=== PATIENT | male | born 1960 | race Caucasian/White ===

== ENCOUNTER 2017-02-08 12:20 | Inpatient (IN) | payer BC ==
[~2017-02-08] VITALS: Ht 177.8 cm; Wt 123.1 kg
[2017-02-08] VITALS (11 sets, daily range): BP systolic 90–120; BP diastolic 47–82; PULSE 76–127; RESP 15–20; TEMP 98.3–99.7; O2SAT 92–100
[2017-02-08] MEDS ORDERED: SODIUM CHLOR 0.9% 1000 ML INJ 600 ML IV ONE (12:38)
[2017-02-08] MEDS ORDERED: SODIUM CHLOR 0.9% 1000 ML INJ 1,000 ML IV ONE ×3 (12:38)
--- NOTE | 2017-02-08 12:44 | PD ---
HPI Chief Complaint: Altered Mental Status Time Seen by Provider: 12:34 Travel History International Travel<30 days: No Contact w/Intl Traveler<30days: No Traveled to known affect area: No History of Present Illness HPI The patient is a 56-year-old male who presents emergency department for fever and chills. The patient states his symptoms started last night and he has noticed fevers, chills, and rigors. The patient also complains of a mild headache, diffuse body aches, and a dry nonproductive cough. He denies any posterior neck pain, photophobia, shortness of breath, chest pain, nausea, vomiting, diarrhea, abdominal pain, or dysuria. He denies any visible rash. According to nursing staff the patient was somewhat altered in triage, however, during the history and physical, patient was alert and oriented. The patient's local primary physician is Dr. Seth Henley. He does note a previous history of cholecystectomy, but denies any chronic medical problems. Symptoms are moderate, there are no current alleviating or exacerbating factors. He did not receive an influenza vaccination this year. [facility] Past Medical History Medical History: Denies Significant Hx Past Surgical History Narrative Surgical Cholecystectomy Family History Narrative Family History Noncontributory Social History Tobacco Use: No Allergies-Medications (Allergen,Severity, Reaction): Coded Allergies: No Known Allergies (Unverified , 02/08/17) Reported Meds & Prescriptions Reported Meds & Active Scripts Active Reported [acid reflux med] Review of Systems Except as stated in HPI: all other systems reviewed are Neg General / Constitutional: Positive: Fever, Chills Eyes: No: Photophobia HENT: Positive: Headaches, No: Neck Pain Cardiovascular: No: Chest Pain or Discomfort Respiratory: Positive: Cough, No: Shortness of Breath Gastrointestinal: No: Nausea, Vomiting, Diarrhea, Abdominal Pain Genitourinary: No: Dysuria Musculoskeletal: Positive: Myalgias Skin: No Rash Physical Exam Narrative GENERAL: Awake, alert, pleasant 56-year-old male who appears his stated age is in no acute respiratory distress. SKIN: Focused skin assessment warm and slightly diaphoretic. HEAD: Atraumatic. Normocephalic. EYES: Pupils equal and round. No scleral icterus. No injection or drainage. ENT: No nasal bleeding or discharge. Mucous membranes pink and moist. No erythema or exudate noted. NECK: Trachea midline. No JVD. No meningeal signs. Full range of motion with flexion and extension as well as rotation to the left and right. CARDIOVASCULAR: Regular, tachycardic with a heart rate in the 120s. RESPIRATORY: Mild tachypnea with a respiratory rate of 22, diminished breath sounds in the right base. GASTROINTESTINAL: Abdomen soft, non-tender, nondistended. No rebound tenderness. MUSCULOSKELETAL: No obvious deformities. No clubbing. No cyanosis. No edema. NEUROLOGICAL: Awake and alert. No obvious cranial nerve deficits. Motor grossly within normal limits. Normal speech. Nonfocal. Patient is oriented to person, place, and year. Follows commands without difficulty. PSYCHIATRIC: Appropriate mood and affect; insight and judgment normal. Data Data Last Documented VS Vital Signs Date Time Temp Pulse Resp B/P Pulse Ox O2 Delivery O2 Flow Rate FiO2 02/08/17 14:25 107 105/55 95 02/08/17 13:48 18 02/08/17 12:29 99.7 Orders Electrocardiogram (02/08/17 12:38) Complete Blood Count With Diff (02/08/17 12:38) Comprehensive Metabolic Panel (02/08/17 12:38) Prothrombin Time / Inr (Pt) (02/08/17 12:38) Act Partial Throm Time (Ptt) (02/08/17 12:38) Lactic Acid Sepsis Protocol (02/08/17 12:38) Magnesium (Mg) (02/08/17 12:38) Troponin I (02/08/17 12:38) Urinalysis - C+S If Indicated (02/08/17 12:38) Influenzae A/B Antigen (02/08/17 12:38) Blood Culture (02/08/17 12:38) Chest, Single Ap (02/08/17 12:38) Blood Gas Venous (Vbg) (02/08/17 12:38) Blood Glucose (02/08/17 12:38) Ecg Monitoring (02/08/17 12:38) Iv Access Insert/Monitor (02/08/17 12:38) Oximetry (02/08/17 12:38) Oxygen Administration (02/08/17 12:38) Acetaminophen (Tylenol) (02/08/17 12:45) Sodium Chlor 0.9% 1000 Ml Inj (Ns 1000 M (02/08/17 12:38) Sodium Chlor 0.9% 1000 Ml Inj (Ns 1000 M (02/08/17 12:38) Sodium Chlor 0.9% 1000 Ml Inj (Ns 1000 M (02/08/17 12:38) Sodium Chlor 0.9% 1000 Ml Inj (Ns 1000 M (02/08/17 12:38) Ct Abd/Pel W Iv Contrast(Rout) (02/08/17 ) Ceftriaxone Inj (Rocephin Inj) (02/08/17 13:45) Ct Thorax/ Chest W Iv Contrast (02/08/17 ) Iohexol 350 Inj (Omnipaque 350 Inj) (02/08/17 14:26) Vancomycin Inj (Vancomycin Inj) (02/08/17 14:33) Piperacil-Tazo 4.5 Gm Premix (Zosyn 4.5 (02/08/17 14:33) Admit Order (Ed Use Only) (02/08/17 15:15) Labs Laboratory Tests Test 02/08/17 02/08/17 13:00 13:02 White Blood Count 7.5 TH/MM3 Red Blood Count 5.07 MIL/MM3 Hemoglobin 15.1 GM/DL Hematocrit 44.6 % Mean Corpuscular Volume 87.9 FL Mean Corpuscular Hemoglobin 29.7 PG Mean Corpuscular Hemoglobin 33.8 % Concent Red Cell Distribution Width 12.4 % Platelet Count 133 TH/MM3 Mean Platelet Volume 8.2 FL Neutrophils (%) (Auto) 92.5 % Lymphocytes (%) (Auto) 5.3 % Monocytes (%) (Auto) 0.9 % Eosinophils (%) (Auto) 0.1 % Basophils (%) (Auto) 1.2 % Neutrophils # (Auto) 6.9 TH/MM3 Lymphocytes # (Auto) 0.4 TH/MM3 Monocytes # (Auto) 0.1 TH/MM3 Eosinophils # (Auto) 0.0 TH/MM3 Basophils # (Auto) 0.1 TH/MM3 CBC Comment AUTO DIFF Differential Comment AUTO DIFF CONFIRMED Prothrombin Time 12.9 SEC Prothromb Time International 1.2 RATIO Ratio Activated Partial 26.1 SEC Thromboplast Time Urine Collection Type CLEAN CATCH Urine Color YELLOW Urine Turbidity CLEAR Urine pH 6.0 Urine Specific [place] 1.015 Urine Protein NEG mg/dL Urine Glucose (UA) NEG mg/dL Urine Ketones NEG mg/dL Urine Occult Blood NEG Urine Nitrite NEG Urine Bilirubin NEG Urine Leukocyte Esterase NEG Urine RBC 0-3 /hpf Urine WBC 0-2 /hpf Urine Squamous Epithelial 0-5 /hpf Cells Urine Transitional Epithelial 0-5 /hpf Cells Microscopic Urinalysis Comment CULT NOT INDICATED Urine Collection Time 13:00 Sodium Level 139 MEQ/L Potassium Level 3.6 MEQ/L Chloride Level 106 MEQ/L Carbon Dioxide Level 19.8 MEQ/L Anion Gap 13 MEQ/L Blood Urea Nitrogen 18 MG/DL Creatinine 1.20 MG/DL Estimat Glomerular Filtration 63 ML/MIN Rate Random Glucose 122 MG/DL Lactic Acid Level 3.7 mmol/L Calcium Level 8.1 MG/DL Magnesium Level 1.4 MG/DL Total Bilirubin 1.4 MG/DL Aspartate Amino Transf 23 U/L (AST/SGOT) Alanine Aminotransferase 25 U/L (ALT/SGPT) Alkaline Phosphatase 108 U/L Troponin I LESS THAN 0.02 NG/ML Total Protein 7.3 GM/DL Albumin 3.2 GM/DL Blood Gas Puncture Site VENOUS Blood Gas Patient Temperature 37.0 Venous Blood pH 7.45 Venous Blood Partial Pressure 31 mmHg CO2 Venous Blood Partial Pressure 34 mmHg O2 Venous Blood HCO3 21 mmol/L Venous Blood Oxygen Saturation 67 % Venous Blood Oxygen Content 14.5 Vol % Venous Blood Base Excess -2.3 mmol/L Oxygen Delivery Device ROOM AIR Blood Gas Inspired Oxygen 21 % MDM Medical Decision Making Medical Screen Exam Complete: Yes Emergency Medical Condition: Yes Medical Record Reviewed: Yes Interpretation(s) EKG reveals sinus tachycardia with a heart rate of 123. Minimal voltage criteria for LVH. Laboratory Tests Test 02/08/17 02/08/17 13:00 13:02 White Blood Count 7.5 TH/MM3 Red Blood Count 5.07 MIL/MM3 Hemoglobin 15.1 GM/DL Hematocrit 44.6 % Mean Corpuscular Volume 87.9 FL Mean Corpuscular Hemoglobin 29.7 PG Mean Corpuscular Hemoglobin 33.8 % Concent Red Cell Distribution Width 12.4 % Platelet Count 133 TH/MM3 Mean Platelet Volume 8.2 FL Neutrophils (%) (Auto) 92.5 % Lymphocytes (%) (Auto) 5.3 % Monocytes (%) (Auto) 0.9 % Eosinophils (%) (Auto) 0.1 % Basophils (%) (Auto) 1.2 % Neutrophils # (Auto) 6.9 TH/MM3 Lymphocytes # (Auto) 0.4 TH/MM3 Monocytes # (Auto) 0.1 TH/MM3 Eosinophils # (Auto) 0.0 TH/MM3 Basophils # (Auto) 0.1 TH/MM3 CBC Comment AUTO DIFF Prothrombin Time 12.9 SEC Prothromb Time International 1.2 RATIO Ratio Activated Partial 26.1 SEC Thromboplast Time Urine Collection Type CLEAN CATCH Urine Color YELLOW Urine Turbidity CLEAR Urine pH 6.0 Urine Specific [place] 1.015 Urine Protein NEG mg/dL Urine Glucose (UA) NEG mg/dL Urine Ketones NEG mg/dL Urine Occult Blood NEG Urine Nitrite NEG Urine Bilirubin NEG Urine Leukocyte Esterase NEG Urine RBC 0-3 /hpf Urine WBC 0-2 /hpf Urine Squamous Epithelial 0-5 /hpf Cells Urine Transitional Epithelial 0-5 /hpf Cells Microscopic Urinalysis Comment CULT NOT INDICATED Urine Collection Time 13:00 Sodium Level 139 MEQ/L Potassium Level 3.6 MEQ/L Chloride Level 106 MEQ/L Carbon Dioxide Level 19.8 MEQ/L Anion Gap 13 MEQ/L Blood Urea Nitrogen 18 MG/DL Creatinine 1.20 MG/DL Estimat Glomerular Filtration 63 ML/MIN Rate Random Glucose 122 MG/DL Lactic Acid Level 3.7 mmol/L Calcium Level 8.1 MG/DL Magnesium Level 1.4 MG/DL Total Bilirubin 1.4 MG/DL Aspartate Amino Transf 23 U/L (AST/SGOT) Alanine Aminotransferase 25 U/L (ALT/SGPT) Alkaline Phosphatase 108 U/L Troponin I LESS THAN 0.02 NG/ML Total Protein 7.3 GM/DL Albumin 3.2 GM/DL Blood Gas Puncture Site VENOUS Blood Gas Patient Temperature 37.0 Venous Blood pH 7.45 Venous Blood Partial Pressure 31 mmHg CO2 Venous Blood Partial Pressure 34 mmHg O2 Venous Blood HCO3 21 mmol/L Venous Blood Oxygen Saturation 67 % Venous Blood Oxygen Content 14.5 Vol % Venous Blood Base Excess -2.3 mmol/L Oxygen Delivery Device ROOM AIR Blood Gas Inspired Oxygen 21 % Last Impressions Chest X-Ray 02/08/17 1238 Signed Impressions: Service Date/Time: Wednesday, February 08, 2017 12:55 - CONCLUSION: Hypoinflation with no acute cardiopulmonary process. Sheng Hooks MD Chest CT 02/08/17 0000 Signed Impressions: Service Date/Time: Wednesday, February 08, 2017 14:05 - CONCLUSION: 1. Lungs are clear. No hilar or mediastinal adenopathy. 2. Innumerable parenchymal cysts throughout the liver probably represents a variant of polycystic kidney disease. Patient is status post cholecystectomy. Sheng Hooks MD Abdomen/Pelvis CT 02/08/17 0000 Signed Impressions: Service Date/Time: Wednesday, February 08, 2017 14:05 - CONCLUSION: 1. Innumerable hepatic cysts likely representing a variant of polycystic kidney disease. 2. A 2.4 cm right inguinal hernia which only contains fat. 3. A 2.75 cm rim calcified benign-appearing structure adjacent to the sigmoid. This may represent a lymph node, old seroma or possibly rim calcified benign duplication cyst Sheng Hooks MD Differential Diagnosis Differential diagnosis includes viral syndrome, influenza, pneumonia, UTI, meningitis, encephalitis, bacteremia, septicemia. Narrative Course IV was established, labs are drawn and sent, and the patient was placed on cardiac telemetry monitoring and continuous pulse oximetry monitoring. EKG was ordered and interpreted. Chest x-ray was obtained. UA was sent to lab. Patient was administered IV fluids, lactic acid blood culture were sent to lab. Chest x-ray reveals hypoinflation, no evidence of pneumonia. However, patient does have rhonchi in the right base with an O2 sat of 92%, I still suspect possible pneumonia. UA is unremarkable. White count is normal, however , lactic acid is elevated at 3.7. As patient has no obvious source of infection , CT of the thorax and abdomen/pelvis were ordered. The patient was covered with Rocephin 2 g intravenously while awaiting CT results. CT of the thorax and abdomen/pelvis revealed chronic changes, multiple cysts noted in the liver, but no acute findings to suggest the source of the fever and elevated lactic acid. The patient was reevaluated at 3 PM after 3 L of IV fluids, his heart rate was down to 105, his symptoms had improved. The patient will need 23 hour observation until initial set of blood cultures are negative. He was covered with Zosyn, Rocephin, and vancomycin. The patient's primary physician is Dr. Seth Henley, therefore, [facility] were paged for 23 hour observation. Sepsis Criteria SIRS Criteria (2 or more): Heart rate over 90 Severe Sepsis (+one): Lactate >2 Physician Communication Physician Communication The patient's primary physician is Dr. Seth Henley. Therefore, [facility] were paged for 23 hour observation. I discussed the patient with Dr. Washington who agrees with 23 hour observation. Diagnosis Primary Impression: Febrile illness Additional Impression: Lactic acidosis Admitting Information Admitting Physician Requests: Observation Condition: Stable Edin Mcarthur MD Feb 08, 2017 12:44
[2017-02-08] MEDS ORDERED: ACETAMINOPHEN 325 MG TAB PO ONE (12:45)
--- NOTE | 2017-02-08 13:06 | RADRPT ---
EXAM DATE/TIME: 02/08/2017 12:55 [facility] COMPARISON: No previous studies available for comparison. INDICATIONS : Fever, cough, short of breath MEDICAL HISTORY : None. SURGICAL HISTORY : None. ENCOUNTER: Initial ACUITY: 1 day PAIN SCORE: 0/10 LOCATION: Bilateral chest FINDINGS: A single view of the chest demonstrates the lungs to be symmetrically, but under aerated without evid ence of mass, infiltrate or effusion. The cardiomediastinal contours are unremarkable. Osseous stru ctures are intact. CONCLUSION: Hypoinflation with no acute cardiopulmonary process. Sheng Hooks MD on February 08, 2017 at 13:04 Board Certified Radiologist. This report was verified electronically.
[2017-02-08 13:07] LABS: BLOOD GAS VENOUS BASE EXCESS -2.3 mmol/L (-2-2); BLOOD GAS VENOUS HCO3 21 mmol/L (22-26); BLOOD GAS VENOUS O2 CONTENT 14.5 Vol % (9.0-17.0); BLOOD GAS VENOUS O2 HGB SAT 67 % (70-76); BLOOD GAS VENOUS PCO2 31 mmHg (44-48); BLOOD GAS VENOUS PO2 34 mmHg (35-40); BLOOD GAS VENOUS pH 7.45 (7.360-7.400); CRITICAL VALUE NO; FIO2 21 %; OXYGEN DEVICE ROOM AIR
[2017-02-08 13:08] LABS: DRAW SITE VENOUS; STAT YES
[2017-02-08 13:16] LABS: BLOOD, URINE NEG (NEG); GLUCOSE,URINE NEG (NEG); KETONE, URINE NEG (NEG); NITRITE,URINE NEG (NEG)
[2017-02-08 13:17] LABS: AUTOMATED NEUTROPHIL # 6.9 TH/MM3 (1.8-7.7); BASOPHIL # 0.1 TH/MM3 (0-0.2); BASOPHIL % 1.2 % (0.0-2.0); EOSINOPHIL % 0.1 % (0.0-4.0); HEMATOCRIT 44.6 % (39.0-51.0); LYMPH % 5.3 % (9.0-44.0); LYMPHOCYTE # 0.4 TH/MM3 (1.0-4.8); MEAN CELL VOLUME 87.9 FL (80.0-100.0); MEAN CORPUSCULAR HEMOGLOBIN 29.7 PG (27.0-34.0); MEAN CORPUSCULAR HGB CONC 33.8 % (32.0-36.0); MONO % 0.9 % (0.0-8.0); NEUT % 92.5 % (16.0-70.0); PLATELET COUNT 133 TH/MM3 (150-450); RED BLOOD COUNT 5.07 MIL/MM3 (4.50-5.90); RED CELL DISTRIBUTION WIDTH 12.4 % (11.6-17.2); WHITE BLOOD COUNT 7.5 TH/MM3 (4.0-11.0)
[2017-02-08 13:20] LABS: HEMO FLAGS AUTO DIFF
[2017-02-08 13:23] LABS: METHOD OF COLLECTION CLEAN CATCH; URINE COLOR YELLOW (YELLW/STRAW)
[2017-02-08 13:24] LABS: COMMENT (UR) CULT NOT INDICATED; CULTURE IF INDICATED CULT NOT INDICATED; RBC, URINE 0-3 /hpf (0-3); SQUAMOUS EPITHELIAL CELL URINE 0-5 /hpf (0-5); TRANSITIONAL EPI CELLS, URINE 0-5 /hpf; WBC, URINE 0-2 /hpf (0-5)
[2017-02-08 13:25] LABS: CHLORIDE 106 MEQ/L (98-107); POTASSIUM 3.6 MEQ/L (3.5-5.1); SODIUM (NA) 139 MEQ/L (136-145)
[2017-02-08] MEDS ORDERED: acid reflux med (13:28)
[2017-02-08 13:29] LABS: ANION GAP 13 MEQ/L (5-15); BICARBONATE 19.8 MEQ/L (21.0-32.0); BLOOD UREA NITROGEN 18 MG/DL (7-18); MAGNESIUM 1.4 MG/DL (1.5-2.5)
[2017-02-08 13:32] LABS: ALT (GPT) 25 U/L (12-78); APTT (PATIENT) 26.1 SEC (24.3-30.1); AST (GOT) 23 U/L (15-37); GLOMERULAR FILTRATION RATE 63 ML/MIN (>89); INTERNATIONAL NORMALIZED RATIO 1.2 RATIO; PROTHROMBIN TIME - PATIENT 12.9 SEC (9.8-11.6)
[2017-02-08 13:34] LABS: TOTAL BILIRUBIN ADULT 1.4 MG/DL (0.2-1.0)
[2017-02-08 13:35] LABS: ALKALINE PHOSPHATASE 108 U/L (45-117)
[2017-02-08] MEDS ORDERED: cefTRIAXone INJ 2,000 MG in SODIUM CHLORIDE 0.9% INJ 100 ML IV ONE (13:45)
[2017-02-08 13:46] LABS: SCAN/DIFF AUTO DIFF CONFIRMED
[2017-02-08] MEDS ORDERED: IOHEXOL 350 MG/ML 10 ML VIAL (for RAD DIAG) IV ONE (14:26)
[2017-02-08] MEDS ORDERED: PIPERACIL-TAZO 4.5 GM PREMIX 100 ML IV STA (14:33)
[2017-02-08] MEDS ORDERED: VANCOMYCIN INJ 1,000 MG in SODIUM CHLOR 0.9% 250 ML INJ 250 ML IV STA (14:33)
--- NOTE | 2017-02-08 14:49 | RADRPT ---
EXAM DATE/TIME: 02/08/2017 14:05 [facility] COMPARISON: No previous studies available for comparison. INDICATIONS : Fever. Short of breath. IV CONTRAST: 95 cc Omnipaque 350 (iohexol) IV ; Cumulative dose for multiple exams. RADIATION DOSE: 24.89 CTDIvol (mGy) ; Combined studies - Thorax/Abdomen/Pelvis MEDICAL HISTORY : None SURGICAL HISTORY : Cholecystectomy. ENCOUNTER: Initial ACUITY: 2 days PAIN SCALE: 0/10 LOCATION: chest TECHNIQUE: Volumetric scanning of the chest was performed. Using automated exposure control and adjustment of t he mA and/or kV according to patient size, radiation dose was kept as low as reasonably achievable to obtain optimal diagnostic quality images. DICOM format image data is available electronically for review and comparison. FINDINGS: LUNGS: There is no consolidation or pneumothorax. No concerning pulmonary nodule is visualized. PLEURA: There is no pleural thickening or pleural effusion. MEDIASTINUM: The heart and great vessels demonstrate no acute abnormality. There is no mediastinal or hilar lymph adenopathy. AXILLAE: Within normal limits. No lymphadenopathy. SKELETAL: Within normal limits for patient age. MISCELLANEOUS: The visualized upper abdominal organs demonstrate no acute abnormality. Patient is status post cholec ystectomy. Innumerable benign-appearing cysts throughout the hepatic parenchyma CONCLUSION: 1. Lungs are clear. No hilar or mediastinal adenopathy. 2. Innumerable parenchymal cysts throughout the liver probably represents a variant of polycystic kid joseph disease. Patient is status post cholecystectomy. Sheng Hooks MD on February 08, 2017 at 14:45 Board Certified Radiologist. This report was verified electronically.
--- NOTE | 2017-02-08 14:53 | RADRPT ---
EXAM DATE/TIME: 02/08/2017 14:05 [facility] COMPARISON: No previous studies available for comparison. INDICATIONS : Fever without source. IV CONTRAST: 95 cc Omnipaque 350 (iohexol) IV ; Cumulative dose for multiple exams. ORAL CONTRAST: No oral contrast ingested. RADIATION DOSE: 24.89 CTDIvol (mGy) ; Combined studies - Thorax/Abdomen/Pelvis MEDICAL HISTORY : None SURGICAL HISTORY : Cholecystectomy. ENCOUNTER: Initial ACUITY: 2 days PAIN SCALE: 0/10 LOCATION: abdomen TECHNIQUE: Volumetric scanning of the abdomen and pelvis was performed. Using automated exposure control and ad justment of the mA and/or kV according to patient size, radiation dose was kept as low as reasonably achievable to obtain optimal diagnostic quality images. DICOM format image data is available electro nically for review and comparison. FINDINGS: LOWER LUNGS: The visualized lower lungs are clear. LIVER: Innumerable hepatic cysts. There is no dilation of the biliary tree. No calcified gallstones. SPLEEN: Normal size without lesion. PANCREAS: Within normal limits. KIDNEYS: Normal in size and shape. There is no mass, stone or hydronephrosis. ADRENAL GLANDS: Within normal limits. VASCULAR: There is no aortic aneurysm. BOWEL/MESENTERY: The stomach, small bowel, and colon demonstrate no acute abnormality. There is no free intraperitone al air or fluid. 2.75 cm rim calcified structure adjacent to the sigmoid colon is overtly benign and may represent an irregular lymph node or old rib calcified seroma. ABDOMINAL WALL: Within normal limits. RETROPERITONEUM: There is no lymphadenopathy. BLADDER: No wall thickening or mass. REPRODUCTIVE: Within normal limits. INGUINAL: 2.4 cm right inguinal hernia which only contains fat. MUSCULOSKELETAL: Within normal limits for patient age. CONCLUSION: 1. Innumerable hepatic cysts likely representing a variant of polycystic kidney disease. 2. A 2.4 cm right inguinal hernia which only contains fat. 3. A 2.75 cm rim calcified benign-appearing structure adjacent to the sigmoid. This may represent a l ymph node, old seroma or possibly rim calcified benign duplication cyst Sheng Hooks MD on February 08, 2017 at 14:48 Board Certified Radiologist. This report was verified electronically.
[2017-02-08 15:03] LABS: LACTIC ACID GHOST NOT REPORTABLE
[2017-02-08] MEDS ORDERED: SENNOSIDES 8.6 MG TAB PO PRN (15:15)
[2017-02-08] MEDS ORDERED: BISACODYL 10 MG SUPP RECTAL PRN (15:15)
[2017-02-08] MEDS ORDERED: NALOXONE HCL 0.4 MG/ML AMP IV PRN (15:15)
[2017-02-08] MEDS ORDERED: MAGNESIUM HYDROXIDE SUSP 30 ML CUP PO PRN (15:15)
[2017-02-08] MEDS ORDERED: SODIUM CHLORIDE 0.9% FLUSH 10 ML FLUSH IV FLUSH PRN (15:15)
[2017-02-08] MEDS ORDERED: LACTULOSE SYRUP 20 GM/30 ML CUP PO PRN (15:15)
[2017-02-08] MEDS: SODIUM CHLOR 0.9% 1000 ML INJ 1,000 ML IV SCH (15:50)
[2017-02-08] MEDS: MAGNESIUM SULFATE 1 GM PREMIX 100 ML IV SCH ×2 (16:00→18:47)
[2017-02-08] MEDS: HEPARIN SODIUM - SQ 10,000 UNITS/ML VIAL SQ SCH (16:01)
--- NOTE | 2017-02-08 17:36 | HHI.HP ---
HPI Service [facility] Primary Care Physician Seth Henley, DO Admission Diagnosis febrile illness, lactic acidosis Diagnoses: Travel History International Travel<30 Days: No Contact w/Intl Traveler <30 Da: No Traveled to Known Affected Are: No History of Present Illness There is a very pleasant 56-year-old male patient of Dr. Henley. The patient had the sudden onset of fever chills and rigors around noontime yesterday. He was confused. He was delusional. He continued same and he was tossing and turning in bed last night. He had a headache and cough. He came into the emergency department at [facility]. He was seen by the undersigned in room 8323 in the presence of his . The said that he at some point had his eyes rolling up. He had a heart rate of 135 on arrival with a lactic acid level of 3.7. Temperature 99.7. He received 3 L of IV fluids. He received Zosyn, Rocephin and vancomycin in the emergency department. He felt much better afterwards. When seen by the undersigned he was back to his normal. All the investigations are so far negative except for the above Past Family Social History Past Medical History Acid reflux Obesity Cholecystitis Hernia Past Surgical History Cholecystectomy Hernia repair Reported Medications Reported Meds & Active Scripts Active Reported [acid reflux med] Allergies: Coded Allergies: No Known Allergies (Unverified , 02/08/17) Family History Reviewed but not contributory Social History Smoking: No excessive alcohol, no illicit drug use Physical Exam Vital Signs Vital Signs Date Time Temp Pulse Resp B/P Pulse Ox O2 Delivery O2 Flow Rate FiO2 02/08/17 16:45 94 16 96/54 100 Room Air 02/08/17 16:19 97 100/47 95 02/08/17 15:53 98 95/56 98 02/08/17 15:19 99.6 103 103/55 95 02/08/17 14:25 107 105/55 95 02/08/17 13:50 99.4 104 18 98/55 97 02/08/17 13:48 104 18 98/55 97 02/08/17 13:19 92 02/08/17 12:29 99.7 127 16 120/82 96 Physical Exam GENERAL: This is a pleasant, obese , well-developed patient, in no apparent distress. SKIN: No rashes, ecchymoses or lesions. Cool and dry. HEAD: Atraumatic. Normocephalic. No temporal or scalp tenderness. EYES: Pupils equal round and reactive. Extraocular motions intact. No scleral icterus. No injection or drainage. ENT: Nose without bleeding, purulent drainage or septal hematoma. Throat without erythema, tonsillar hypertrophy or exudate. Uvula midline. Airway patent. NECK: Trachea midline. No JVD or lymphadenopathy. Supple, nontender, no meningeal signs. CARDIOVASCULAR: Regular rate and rhythm without murmurs, gallops, or rubs. RESPIRATORY: Clear to auscultation. Breath sounds equal bilaterally. No wheezes , rales, or rhonchi. GASTROINTESTINAL: Abdomen soft, non-tender, nondistended. No hepato-splenomegaly , or palpable masses. No guarding. MUSCULOSKELETAL: Extremities without clubbing, cyanosis, or edema. No joint tenderness, effusion, or edema noted. No calf tenderness. Negative Homans sign bilaterally. NEUROLOGICAL: Awake and alert. Cranial nerves II through XII intact.. Normal speech. Laboratory Laboratory Tests Test 02/08/17 02/08/17 02/08/17 13:00 13:02 15:38 White Blood Count 7.5 Red Blood Count 5.07 Hemoglobin 15.1 Hematocrit 44.6 Mean Corpuscular Volume 87.9 Mean Corpuscular Hemoglobin 29.7 Mean Corpuscular Hemoglobin 33.8 Concent Red Cell Distribution Width 12.4 Platelet Count 133 Mean Platelet Volume 8.2 Neutrophils (%) (Auto) 92.5 Lymphocytes (%) (Auto) 5.3 Monocytes (%) (Auto) 0.9 Eosinophils (%) (Auto) 0.1 Basophils (%) (Auto) 1.2 Neutrophils # (Auto) 6.9 Lymphocytes # (Auto) 0.4 Monocytes # (Auto) 0.1 Eosinophils # (Auto) 0.0 Basophils # (Auto) 0.1 CBC Comment AUTO DIFF Differential Comment AUTO DIFF CONFIRMED Prothrombin Time 12.9 Prothromb Time International 1.2 Ratio Activated Partial 26.1 Thromboplast Time Urine Collection Type CLEAN CATCH Urine Color YELLOW Urine Turbidity CLEAR Urine pH 6.0 Urine Specific [place] 1.015 Urine Protein NEG Urine Glucose (UA) NEG Urine Ketones NEG Urine Occult Blood NEG Urine Nitrite NEG Urine Bilirubin NEG Urine Leukocyte Esterase NEG Urine RBC 0-3 Urine WBC 0-2 Urine Squamous Epithelial 0-5 Cells Urine Transitional Epithelial 0-5 Cells Microscopic Urinalysis Comment CULT NOT INDICATED Urine Collection Time 13:00 Sodium Level 139 Potassium Level 3.6 Chloride Level 106 Carbon Dioxide Level 19.8 Anion Gap 13 Blood Urea Nitrogen 18 Creatinine 1.20 Estimat Glomerular Filtration 63 Rate Random Glucose 122 Lactic Acid Level 3.7 1.5 Calcium Level 8.1 Magnesium Level 1.4 Total Bilirubin 1.4 Aspartate Amino Transf 23 (AST/SGOT) Alanine Aminotransferase 25 (ALT/SGPT) Alkaline Phosphatase 108 Troponin I LESS THAN 0.02 Total Protein 7.3 Albumin 3.2 Blood Gas Puncture Site VENOUS Blood Gas Patient Temperature 37.0 Venous Blood pH 7.45 Venous Blood Partial Pressure 31 CO2 Venous Blood Partial Pressure 34 O2 Venous Blood HCO3 21 Venous Blood Oxygen Saturation 67 Venous Blood Oxygen Content 14.5 Venous Blood Base Excess -2.3 Oxygen Delivery Device ROOM AIR Blood Gas Inspired Oxygen 21 Date/Time Procedure Status Source Growth 02/08/17 13:05 Aerobic Blood Culture Received Blood Peripheral Pending 02/08/17 13:05 Anaerobic Blood Culture Received Blood Peripheral Pending 02/08/17 13:00 Influenza Types A,B Antigen (ELSI) - Final Complete Nasal Aspirate NEGATIVE FOR FLU A AND B ANTIGEN.... Result Diagram: 02/08/17 1300 02/08/17 1300 Imaging Last 24 hours Impressions Chest X-Ray 02/08/17 1238 Signed Impressions: Service Date/Time: Wednesday, February 08, 2017 12:55 - CONCLUSION: Hypoinflation with no acute cardiopulmonary process. Sheng Hooks MD Chest CT 02/08/17 0000 Signed Impressions: Service Date/Time: Wednesday, February 08, 2017 14:05 - CONCLUSION: 1. Lungs are clear. No hilar or mediastinal adenopathy. 2. Innumerable parenchymal cysts throughout the liver probably represents a variant of polycystic kidney disease. Patient is status post cholecystectomy. Sheng Hooks MD Abdomen/Pelvis CT 02/08/17 0000 Signed Impressions: Service Date/Time: Wednesday, February 08, 2017 14:05 - CONCLUSION: 1. Innumerable hepatic cysts likely representing a variant of polycystic kidney disease. 2. A 2.4 cm right inguinal hernia which only contains fat. 3. A 2.75 cm rim calcified benign-appearing structure adjacent to the sigmoid. This may represent a lymph node, old seroma or possibly rim calcified benign duplication cyst Sheng Hooks MD Assessment and Plan Assessment and Plan Assessment Fever Sepsis Sinus tachycardia Dehydration Hypomagnesemia Right inguinal hernia, fat-containing Multiple liver cysts Calcified structure adjacent to the sigmoid, significance unclear Management Admitted to telemetry IV fluids Empiric antibiotics Follow white count Follow cultures Is to have outpatient colonoscopy Discussed with patient and Discussed with nurse Discussed with emergency physician 45 minutes Discussed With: Nurse, Family Александр Washington MD Feb 08, 2017 17:36
[2017-02-08] MEDS: DOCUSATE SODIUM 50 MG/SENNA 8.6 MG TAB PO SCH (21:00)
[2017-02-08] MEDS: SODIUM CHLORIDE 0.9% FLUSH 10 ML FLUSH IV FLUSH SCH (21:00)
[2017-02-09] VITALS: BP 97/59; PULSE 81; RESP 20; TEMP 98.7; O2SAT 97
[2017-02-09] MEDS: SODIUM CHLOR 0.9% 1000 ML INJ 1,000 ML IV SCH ×3 (01:39→21:15)
[2017-02-09] MEDS: HEPARIN SODIUM - SQ 10,000 UNITS/ML VIAL SQ SCH ×2 (04:27→18:39)
[2017-02-09 05:47] LABS: BASOPHIL % 0.1 % (0.0-2.0); EOSINOPHIL % 0.2 % (0.0-4.0); HEMATOCRIT 37.8 % (39.0-51.0); LYMPH % 6.7 % (9.0-44.0); LYMPHOCYTE # 0.7 TH/MM3 (1.0-4.8); MEAN CORPUSCULAR HEMOGLOBIN 30.3 PG (27.0-34.0); MONO % 8.2 % (0.0-8.0); NEUT % 84.8 % (16.0-70.0); PLATELET COUNT 82 TH/MM3 (150-450); RED BLOOD COUNT 4.24 MIL/MM3 (4.50-5.90); RED CELL DISTRIBUTION WIDTH 12.5 % (11.6-17.2); WHITE BLOOD COUNT 10.6 TH/MM3 (4.0-11.0)
[2017-02-09 05:52] LABS: POTASSIUM 3.4 MEQ/L (3.5-5.1)
[2017-02-09 06:00] LABS: HEMO FLAGS AUTO DIFF
[2017-02-09 07:03] LABS: PLATELET ESTIMATE SMEAR LOW (NORMAL); PLATELET MORPHOLOGY NORMAL (NORMAL)
[2017-02-09 07:04] LABS: SCAN/DIFF AUTO DIFF CONFIRMED
--- NOTE | 2017-02-09 08:16 | HHI.PR ---
Subjective History of Present Illness patient feel better no acute issue have low potassium will replace. Review of Systems Constitutional Constitutional: Fatigue, Weakness Vitals/Results Intake & Output 02/08/17 02/08/17 02/09/17 15:00 23:00 07:00 Intake Total 2500 ml 1000 ml 600 ml Balance 2500 ml 1000 ml 600 ml Intake Oral 600 ml IV Total 2500 ml 1000 ml # Voids 4 # Bowel Movements 0 Vital Signs Vital Signs Date Time Temp Pulse Resp B/P Pulse Ox O2 Delivery O2 Flow Rate FiO2 02/09/17 00:00 98.7 81 20 97/59 97 02/08/17 20:00 99.2 81 20 90/64 97 02/08/17 17:52 98.3 76 15 94/67 95 02/08/17 16:45 94 16 96/54 100 Room Air 02/08/17 16:19 97 100/47 95 02/08/17 15:53 98 95/56 98 02/08/17 15:19 99.6 103 103/55 95 02/08/17 14:25 107 105/55 95 02/08/17 13:50 99.4 104 18 98/55 97 02/08/17 13:48 104 18 98/55 97 02/08/17 13:19 92 02/08/17 12:29 99.7 127 16 120/82 96 CBC/BMP: 02/09/17 0503 02/09/17 0503 Lab Results Laboratory Tests Test 02/08/17 02/08/17 02/08/17 02/09/17 13:00 13:02 15:38 05:03 White Blood Count 7.5 TH/MM3 10.6 TH/MM3 Red Blood Count 5.07 MIL/MM3 4.24 MIL/MM3 Hemoglobin 15.1 GM/DL 12.9 GM/DL Hematocrit 44.6 % 37.8 % Mean Corpuscular Volume 87.9 FL 89.0 FL Mean Corpuscular Hemoglobin 29.7 PG 30.3 PG Mean Corpuscular Hemoglobin 33.8 % 34.0 % Concent Red Cell Distribution Width 12.4 % 12.5 % Platelet Count 133 TH/MM3 82 TH/MM3 Mean Platelet Volume 8.2 FL 8.9 FL Neutrophils (%) (Auto) 92.5 % 84.8 % Lymphocytes (%) (Auto) 5.3 % 6.7 % Monocytes (%) (Auto) 0.9 % 8.2 % Eosinophils (%) (Auto) 0.1 % 0.2 % Basophils (%) (Auto) 1.2 % 0.1 % Neutrophils # (Auto) 6.9 TH/MM3 9.0 TH/MM3 Lymphocytes # (Auto) 0.4 TH/MM3 0.7 TH/MM3 Monocytes # (Auto) 0.1 TH/MM3 0.9 TH/MM3 Eosinophils # (Auto) 0.0 TH/MM3 0.0 TH/MM3 Basophils # (Auto) 0.1 TH/MM3 0.0 TH/MM3 CBC Comment AUTO DIFF AUTO DIFF Differential Comment AUTO DIFF AUTO DIFF CONFIRMED CONFIRMED Prothrombin Time 12.9 SEC Prothromb Time International 1.2 RATIO Ratio Activated Partial 26.1 SEC Thromboplast Time Urine Collection Type CLEAN CATCH Urine Color YELLOW Urine Turbidity CLEAR Urine pH 6.0 Urine Specific [place] 1.015 Urine Protein NEG mg/dL Urine Glucose (UA) NEG mg/dL Urine Ketones NEG mg/dL Urine Occult Blood NEG Urine Nitrite NEG Urine Bilirubin NEG Urine Leukocyte Esterase NEG Urine RBC 0-3 /hpf Urine WBC 0-2 /hpf Urine Squamous Epithelial 0-5 /hpf Cells Urine Transitional Epithelial 0-5 /hpf Cells Microscopic Urinalysis Comment CULT NOT INDICATED Urine Collection Time 13:00 Sodium Level 139 MEQ/L 141 MEQ/L Potassium Level 3.6 MEQ/L 3.4 MEQ/L Chloride Level 106 MEQ/L 109 MEQ/L Carbon Dioxide Level 19.8 MEQ/L 21.0 MEQ/L Anion Gap 13 MEQ/L 11 MEQ/L Blood Urea Nitrogen 18 MG/DL 14 MG/DL Creatinine 1.20 MG/DL 0.81 MG/DL Estimat Glomerular Filtration 63 ML/MIN 99 ML/MIN Rate Random Glucose 122 MG/DL 96 MG/DL Lactic Acid Level 3.7 mmol/L 1.5 mmol/L Calcium Level 8.1 MG/DL 7.8 MG/DL Magnesium Level 1.4 MG/DL Total Bilirubin 1.4 MG/DL Aspartate Amino Transf 23 U/L (AST/SGOT) Alanine Aminotransferase 25 U/L (ALT/SGPT) Alkaline Phosphatase 108 U/L Troponin I LESS THAN 0.02 NG/ML Total Protein 7.3 GM/DL Albumin 3.2 GM/DL Blood Gas Puncture Site VENOUS Blood Gas Patient Temperature 37.0 Venous Blood pH 7.45 Venous Blood Partial Pressure 31 mmHg CO2 Venous Blood Partial Pressure 34 mmHg O2 Venous Blood HCO3 21 mmol/L Venous Blood Oxygen Saturation 67 % Venous Blood Oxygen Content 14.5 Vol % Venous Blood Base Excess -2.3 mmol/L Oxygen Delivery Device ROOM AIR Blood Gas Inspired Oxygen 21 % Platelet Estimate LOW Platelet Morphology Comment NORMAL Microbiology Microbiology 02/08/17 Aerobic Blood Culture, Received Pending 02/08/17 Anaerobic Blood Culture, Received Pending 02/08/17 Influenza Types A,B Antigen (ELSI) - Final, Complete NEGATIVE FOR FLU A AND B ANTIGEN.... 02/08/17 Aerobic Blood Culture, Received Pending 02/08/17 Anaerobic Blood Culture, Received Pending Physical Exam General General Appearance: Well Developed, Well Nourished, No Acute Distress, Comfortable Eyes Eye Exam: Sclera White, Extraocular Movement Intact Throat Throat Exam: Oral Mucosa [place] & Moist, Oral Pharynx Normal Neck Neck Exam: Neck Supple, Trachea Midline Pulmonary Resp Exam: Clear Bilaterally, Breath Sounds Equal, No Distress Cardiology CV Exam: Regular, Normal Sinus Rhythm, Good Perfusion Gastrointestinal/Abdomen GI Exam: Soft, Non-Tender, Bowel Sounds Present Genitourinary Exam: Clear Urine Musculoskeletal MS Exam: Normal Tone Integumentary Skin Exam: Clear, Warm, Dry, Intact Extremeties Extremities Exam: No Edema Neurologic Neuro Exam: Alert, Awake, Oriented, Speech Clear, Moving All Extremities, No Focal Deficits Assessment/Plan Assessment/Plan Assessment and Plan Fever Sepsis on admission... blood culture positive for E. Coli on rocephin 1 gm Daily consult ID.. Sinus tachycardia.. Resolved. Dehydration.. better Hypomagnesemia will replace and monitor. Right inguinal hernia, fat-containing Multiple liver cysts Calcified structure adjacent to the sigmoid, significance unclear Management IV fluids Empiric antibiotics Follow white count Follow cultures need outpatient colonoscopy Discussed with patient Discussed with nurse Discussed Condition with: Patient Erasmo Washington MD Feb 09, 2017 08:16
[2017-02-09] MEDS: SODIUM CHLORIDE 0.9% FLUSH 10 ML FLUSH IV FLUSH SCH ×2 (08:23→21:46)
[2017-02-09] MEDS: DOCUSATE SODIUM 50 MG/SENNA 8.6 MG TAB PO SCH ×2 (08:28→21:00)
[2017-02-09 08:46] VITALS: BP 113/66; PULSE 83; RESP 19; TEMP 98.7; O2SAT 95
[2017-02-09] MEDS ORDERED: cefTRIAXone INJ 1,000 MG in SODIUM CHLORIDE 0.9% INJ 100 ML IV SCH (09:00)
[2017-02-09] MEDS ORDERED: POTASSIUM CHLORIDE 10 MEQ CONTROLLED RELEASE TAB PO ONE (09:00)
[2017-02-09 12:47] VITALS: BP 119/68; PULSE 83; RESP 19; TEMP 98.7; O2SAT 100
--- NOTE | 2017-02-09 13:13 | EKG ---
Date Performed: 02/08/2017 Time Performed: 13:07:09 PTAGE: 56 years EKG: SINUS TACHYCARDIA MINIMAL VOLTAGE CRITERIA FOR LVH, CONSIDER NORMAL VARIANT ABNORMAL RHYTHM ECG NO PREVIOUS TRACING DOCTOR: Kishan Moses Interpretating Date/Time 02/09/2017 13:11:12
[2017-02-09 16:56] VITALS: BP 120/71; PULSE 92; RESP 19; TEMP 99.2; O2SAT 96
--- NOTE | 2017-02-09 18:40 | MB ---
cc: JULIO HONG MD DATE OF CONSULTATION: 02/09/2017. REASON FOR CONSULTATION: Sepsis. REQUESTING PHYSICIAN: Dr. Erasmo Washington. HISTORY OF PRESENT ILLNESS This is a 56-year-old white male who was brought to the emergency department on 02/09 after he developed fever and chills and altered mental status. The patient's noted that two days ago in the afternoon-time the patient was about to go out with his to shop. He states that he was not feeling well but he had no significant problems except for feeling cold. He did not go out but that night after he went to bed he suddenly woke up with rigors and feeling feverish and had altered mental status. The noted that he was seeing unusual things. He was brought to the emergency department for further evaluation. In the emergency department, heart rate was 107. The white blood cell count was normal but he had elevated lactic acid of 3.7 and estimated GFR of 63. The patient was given antibiotics after blood cultures were taken. A CT scan of the abdomen showed innumerable hepatic cysts likely representing a variant of polycystic kidney disease. CT scan of the chest was unremarkable. The patient states that he did not have any trouble with urination such as burning. He denies diarrhea. After he was admitted to the hospital yesterday, he still had some altered mental status. The patient currently he is mentally clear. He feels better. He did have a low grade fever of 99.7 yesterday evening but is now afebrile. Blood cultures have gram-negative rods in all four bottles and one is identified as E coli. Urinalysis on admission was unremarkable; a culture was not taken. The patient denies dysuria, burning on urination, diarrhea before admission. He states that he had some watery stools after admission. His notes that he had a headache during the week before feeling ill. He denies photophobia or visual changes or neck stiffness. He reports he thinks he has a pinched nerve in his left upper extremity and when he moves his neck in a certain direction he feels a twinge of pain in the arm and then when he moves in the other direction it goes away. The patient denies any unusual food consumption. His white count yesterday was 7.5 and today it is 10.6 and his platelet count has dropped from 133,000 to 82,000 and he has a left shift of 84% neutrophils. PAST MEDICAL HISTORY: 1. Acid reflux. 2. Hernia repair. 3. Cholecystectomy. 4. History of cholecystitis. ALLERGIES: NO KNOWN DRUG ALLERGIES. MEDICATIONS: 1. Ceftriaxone. 2. Subcutaneous heparin. 3. Blessing-Colace. SOCIAL HISTORY: . No tobacco use. No illicit drugs. No alcohol. The patient is retired. FAMILY HISTORY: Noncontributory. REVIEW OF SYSTEMS: Pertinents mentioned above in the history of present illness. PHYSICAL EXAMINATION: GENERAL: This is a more moderately obese male who is in no acute distress. He is awake and alert and oriented. VITAL SIGNS: Temperature 98.7, blood pressure 119/68, respirations 18, heart rate 83. HEAD, EYES, EARS, NOSE, THROAT: Head atraumatic. Extraocular movements grossly intact. Pupils reactive to light. No icterus. Oropharynx has no visible lesions or thrush. NECK: Supple without adenopathy. LUNGS: Clear breath sounds which are diminished throughout. HEART: Normal S1 and S2 without murmurs, rubs or gallops. ABDOMEN: Bowel sounds present, soft, nontender. RECTAL: Not performed. EXTREMITIES: No clubbing or cyanosis or edema. SKIN: No rash. NEUROLOGIC: No gross focal findings. PSYCHIATRIC: The patient has normal thought process. Calm and cooperative. LABORATORY DATA: WBCs 10.6, platelets 82,000, hemoglobin 12.9. Creatinine 0.81, BUN 14, sodium 144, total bilirubin 1.4. Liver function tests normal. IMPRESSION: 1. Gram-negative sepsis due to E coli of questionable source. The patient denies urinary symptoms. 2. History of cholecystectomy. 3. Thrombocytopenia. 4. CT scan of the abdomen and pelvis showing innumerable hepatic cysts. RECOMMENDATIONS: 1. Continue Ceftriaxone but increase the dose to 2 grams IV every 24 hours. 2. Monitor the sensitivity of the bacteria in the blood. 3. Obtain a urine culture 4. Monitor clinical response. 5. Consider the possibility of one of the hepatic cysts being the source of the bacteremia and sepsis. The patient however is clinically stable and looks improved. The patient wants to go home. I notified him and his that we need to try to investigate the source of the bacteremia and to make sure that he is on appropriate antibiotics before we can entertain discharge. Thank you for this consultation. The patient's progress and cultures will be monitored further and further recommendations will be given on followup. Julio Hong MD FD/YEN /4:54 PM /6:30 PM
[2017-02-09 20:00] VITALS: BP 128/79; PULSE 94; RESP 18; TEMP 100.5; O2SAT 98
[2017-02-10] VITALS: BP 126/73; PULSE 91; RESP 18; TEMP 98.8; O2SAT 95
[2017-02-10] MEDS: ACETAMINOPHEN 500 MG CPLT PO PRN ×2 (00:44→18:02)
[2017-02-10 02:14] VITALS: TEMP 99.6
[2017-02-10] MEDS: SODIUM CHLOR 0.9% 1000 ML INJ 1,000 ML IV SCH (04:11)
[2017-02-10] MEDS: HEPARIN SODIUM - SQ 10,000 UNITS/ML VIAL SQ SCH ×2 (04:11→17:55)
--- NOTE | 2017-02-10 08:30 | HHI.PR ---
Subjective History of Present Illness patient feel better no acute issue have low potassium will replace. Blood culture positive for E. Coli Infectious disease input noted increased dose of Rocephin to 2 gram IV Daily. d/w NEMO Jensen at bed side.. DC IV fluid. Review of Systems Constitutional Constitutional: Fatigue, Weakness Vitals/Results Intake & Output 02/09/17 02/09/17 02/10/17 15:00 23:00 07:00 Intake Total 870 ml 660 ml Output Total 250 ml 700 ml Balance 620 ml -40 ml Intake Oral 870 ml 660 ml Output Urine Total 250 ml 700 ml # Voids 5 # Bowel Movements 1 2 Vital Signs Vital Signs Date Time Temp Pulse Resp B/P Pulse Ox O2 Delivery O2 Flow Rate FiO2 02/10/17 02:14 99.6 02/10/17 00:00 98.8 91 18 126/73 95 02/09/17 20:00 100.5 94 18 128/79 98 02/09/17 16:56 99.2 92 19 120/71 96 02/09/17 12:47 98.7 83 19 119/68 100 02/09/17 08:46 98.7 83 19 113/66 95 CBC/BMP: 02/09/17 0503 02/09/17 0503 Microbiology Microbiology 02/09/17 Urine Culture, Received Pending Physical Exam General General Appearance: Well Developed, Well Nourished, No Acute Distress, Comfortable Eyes Eye Exam: Sclera White, Extraocular Movement Intact Throat Throat Exam: Oral Mucosa [place] & Moist, Oral Pharynx Normal Neck Neck Exam: Neck Supple, Trachea Midline Pulmonary Resp Exam: Clear Bilaterally, Breath Sounds Equal, No Distress Cardiology CV Exam: Regular, Normal Sinus Rhythm, Good Perfusion Gastrointestinal/Abdomen GI Exam: Soft, Non-Tender, Bowel Sounds Present Genitourinary Exam: Clear Urine Musculoskeletal MS Exam: Normal Tone Integumentary Skin Exam: Clear, Warm, Dry, Intact Extremeties Extremities Exam: No Edema Neurologic Neuro Exam: Alert, Awake, Oriented, Speech Clear, Moving All Extremities, No Focal Deficits Assessment/Plan Assessment/Plan Assessment and Plan Fever Sepsis on admission... Blood culture positive for E. Coli Infectious disease input noted increased dose of Rocephin to 2 gram IV Daily. Sinus tachycardia.. Resolved. Dehydration.. better Hypomagnesemia will replace and monitor. Right inguinal hernia, fat-containing Multiple liver cysts Calcified structure adjacent to the sigmoid, significance unclear Management IV fluids Empiric antibiotics Follow white count Follow cultures need outpatient colonoscopy Discussed with patient Discussed with nurse Check CBC with diff CMP in am. Discussed Condition with: Patient Erasmo Washington MD Feb 10, 2017 08:30
[2017-02-10 08:36] VITALS: BP 136/78; PULSE 73; RESP 19; TEMP 98.6; O2SAT 97
[2017-02-10] MEDS: SODIUM CHLORIDE 0.9% FLUSH 10 ML FLUSH IV FLUSH SCH ×2 (08:52→20:31)
[2017-02-10] MEDS: DOCUSATE SODIUM 50 MG/SENNA 8.6 MG TAB PO SCH ×2 (08:52→20:40)
[2017-02-10] MEDS: cefTRIAXone INJ 2,000 MG in SODIUM CHLORIDE 0.9% INJ 100 ML IV SCH (08:52)
[2017-02-10 10:58] LABS: CHLORIDE 109 MEQ/L (98-107); POTASSIUM 3.5 MEQ/L (3.5-5.1); SODIUM (NA) 141 MEQ/L (136-145)
[2017-02-10 11:10] LABS: ALKALINE PHOSPHATASE 86 U/L (45-117); ALT (GPT) 22 U/L (12-78); ANION GAP 8 MEQ/L (5-15); AST (GOT) 21 U/L (15-37); BLOOD UREA NITROGEN 9 MG/DL (7-18); GLOMERULAR FILTRATION RATE 115 ML/MIN (>89); TOTAL BILIRUBIN ADULT 0.4 MG/DL (0.2-1.0)
[2017-02-10 11:11] LABS: AUTOMATED NEUTROPHIL # 7.9 TH/MM3 (1.8-7.7); BASOPHIL % 0.4 % (0.0-2.0); EOSINOPHIL # 0.1 TH/MM3 (0-0.4); EOSINOPHIL % 0.7 % (0.0-4.0); HEMATOCRIT 40.8 % (39.0-51.0); LYMPH % 13.6 % (9.0-44.0); LYMPHOCYTE # 1.4 TH/MM3 (1.0-4.8); MEAN CELL VOLUME 89.8 FL (80.0-100.0); MEAN CORPUSCULAR HGB CONC 33.3 % (32.0-36.0); MONO % 8.3 % (0.0-8.0); PLATELET COUNT 104 TH/MM3 (150-450); RED BLOOD COUNT 4.54 MIL/MM3 (4.50-5.90); WHITE BLOOD COUNT 10.2 TH/MM3 (4.0-11.0)
[2017-02-10 11:12] LABS: HEMO FLAGS AUTO DIFF
[2017-02-10 11:37] LABS: EOSINOPHILS 1 % (0-4); NEUTROPHIL # MANUAL DIFF 7.5 TH/MM3 (1.8-7.7); POLYS (SEG NEUTROPHILS) 74 % (16-70); SCAN/DIFF FINAL DIFF MANUAL; WBC DIFF SAMPLE 100
[2017-02-10 13:02] VITALS: BP 141/78; PULSE 79; RESP 19; TEMP 99.2; O2SAT 99
[2017-02-10 17:30] VITALS: BP 129/72; PULSE 71; RESP 19; TEMP 100.1; O2SAT 98
[2017-02-10 20:00] VITALS: BP 111/81; PULSE 90; RESP 18; TEMP 100.1; O2SAT 96
--- NOTE | 2017-02-10 22:35 | HHI.IDPN ---
Subjective Subjective Remarks chart reviewed 56 yo male with sepsis, E.coli Non localising denies abd pain or urological smx remote UTI /prostate infection CT abd/pel negative for acute pathology UA negative doing well ambulating ion hallway, but still febrile to 100.1 Antibiotics CFTX Allergies: Coded Allergies: No Known Allergies (Unverified , 02/08/17) Objective . Vital Signs Date Time Temp Pulse Resp B/P Pulse Ox O2 Delivery O2 Flow Rate FiO2 02/10/17 20:00 100.1 90 18 111/81 96 02/10/17 17:30 100.1 71 19 129/72 98 02/10/17 13:02 99.2 79 19 141/78 99 02/10/17 08:36 98.6 73 19 136/78 97 02/10/17 02:14 99.6 02/10/17 00:00 98.8 91 18 126/73 95 02/09/17 02/09/17 02/10/17 15:00 23:00 07:00 Intake Total 870 ml 660 ml Output Total 250 ml 700 ml Balance 620 ml -40 ml Intake Oral 870 ml 660 ml Output Urine Total 250 ml 700 ml # Voids 5 # Bowel Movements 1 2 . Laboratory Tests Test 02/09/17 02/10/17 05:03 10:30 White Blood Count 10.6 TH/MM3 10.2 TH/MM3 Red Blood Count 4.24 MIL/MM3 4.54 MIL/MM3 Hemoglobin 12.9 GM/DL 13.6 GM/DL Hematocrit 37.8 % 40.8 % Mean Corpuscular Volume 89.0 FL 89.8 FL Mean Corpuscular Hemoglobin 30.3 PG 30.0 PG Mean Corpuscular Hemoglobin 34.0 % 33.3 % Concent Red Cell Distribution Width 12.5 % 13.0 % Platelet Count 82 TH/MM3 104 TH/MM3 Mean Platelet Volume 8.9 FL 9.1 FL Neutrophils (%) (Auto) 84.8 % 77.0 % Lymphocytes (%) (Auto) 6.7 % 13.6 % Monocytes (%) (Auto) 8.2 % 8.3 % Eosinophils (%) (Auto) 0.2 % 0.7 % Basophils (%) (Auto) 0.1 % 0.4 % Neutrophils # (Auto) 9.0 TH/MM3 7.9 TH/MM3 Lymphocytes # (Auto) 0.7 TH/MM3 1.4 TH/MM3 Monocytes # (Auto) 0.9 TH/MM3 0.8 TH/MM3 Eosinophils # (Auto) 0.0 TH/MM3 0.1 TH/MM3 Basophils # (Auto) 0.0 TH/MM3 0.0 TH/MM3 CBC Comment AUTO DIFF AUTO DIFF Differential Comment AUTO DIFF FINAL DIFF CONFIRMED MANUAL Platelet Estimate LOW Platelet Morphology Comment NORMAL Differential Total Cells 100 Counted Neutrophils % (Manual) 74 % Lymphocytes % 17 % Monocytes % 8 % Eosinophils % 1 % Neutrophils # (Manual) 7.5 TH/MM3 Laboratory Tests Test 02/09/17 02/10/17 05:03 10:30 Sodium Level 141 MEQ/L 141 MEQ/L Potassium Level 3.4 MEQ/L 3.5 MEQ/L Chloride Level 109 MEQ/L 109 MEQ/L Carbon Dioxide Level 21.0 MEQ/L 24.0 MEQ/L Anion Gap 11 MEQ/L 8 MEQ/L Blood Urea Nitrogen 14 MG/DL 9 MG/DL Creatinine 0.81 MG/DL 0.71 MG/DL Estimat Glomerular Filtration 99 ML/MIN 115 ML/MIN Rate Random Glucose 96 MG/DL 81 MG/DL Calcium Level 7.8 MG/DL 7.9 MG/DL Magnesium Level 2.0 MG/DL Total Bilirubin 0.4 MG/DL Aspartate Amino Transf 21 U/L (AST/SGOT) Alanine Aminotransferase 22 U/L (ALT/SGPT) Alkaline Phosphatase 86 U/L Total Protein 6.9 GM/DL Albumin 2.6 GM/DL Microbiology Date/Time Procedure Status Source Growth 02/08/17 13:00 Aerobic Blood Culture - Final Complete Blood Peripheral Escherichia Coli 02/08/17 13:00 Anaerobic Blood Culture - Final Complete Escherichia Coli 02/08/17 13:00 Influenza Types A,B Antigen (ELSI) - Final Complete Nasal Aspirate NEGATIVE FOR FLU A AND B ANTIGEN.... 02/08/17 13:05 Aerobic Blood Culture - Preliminary Resulted Blood Peripheral Escherichia Coli 02/08/17 13:05 Anaerobic Blood Culture - Final Resulted Escherichia Coli 02/09/17 22:23 Urine Culture - Preliminary Resulted Urine Clean Catch RESULTS PENDING Imaging Last Impressions Chest X-Ray 02/08/17 1238 Signed Impressions: Service Date/Time: Wednesday, February 08, 2017 12:55 - CONCLUSION: Hypoinflation with no acute cardiopulmonary process. Sheng Hooks MD Chest CT 02/08/17 0000 Signed Impressions: Service Date/Time: Wednesday, February 08, 2017 14:05 - CONCLUSION: 1. Lungs are clear. No hilar or mediastinal adenopathy. 2. Innumerable parenchymal cysts throughout the liver probably represents a variant of polycystic kidney disease. Patient is status post cholecystectomy. Sheng Hooks MD Abdomen/Pelvis CT 02/08/17 0000 Signed Impressions: Service Date/Time: Wednesday, February 08, 2017 14:05 - CONCLUSION: 1. Innumerable hepatic cysts likely representing a variant of polycystic kidney disease. 2. A 2.4 cm right inguinal hernia which only contains fat. 3. A 2.75 cm rim calcified benign-appearing structure adjacent to the sigmoid. This may represent a lymph node, old seroma or possibly rim calcified benign duplication cyst Sheng Hooks MD Physical Exam CONSTITUTIONAL/GENERAL: This is an adequately nourished patient, in no apparent distress. TUBES/LINES/DRAINS: SKIN: No jaundice, rashes, or lesions. Skin temperature appropriate. Not diaphoretic. HEAD: Atraumatic. Normocephalic. EYES: Pupils equal and round and reactive. Extraocular motions intact. No scleral icterus. No injection or drainage. Fundi not examined. ENT: Hearing grossly normal. Nose without bleeding or purulent drainage. Oal mucosae moist NECK: Trachea midline. CARDIOVASCULAR: Regular rate and rhythm without murmurs, gallops, or rubs. No JVD. Peripheral pulses symmetric. RESPIRATORY/CHEST: Symmetric, unlabored respirations. Clear to auscultation. Breath sounds equal bilaterally. No wheezes, rales, or rhonchi. GASTROINTESTINAL: Abdomen soft, non-tender, nondistended. No hepato-splenomegaly , or palpable masses. No guarding. Bowel sounds present. GENITOURINARY: Without palpable bladder distension. MUSCULOSKELETAL: Extremities without clubbing, cyanosis, or edema. No joint tenderness or effusion noted. No calf tenderness. No mottling or clubbing. NEUROLOGICAL: Awake and alert. Motor and sensory grossly within normal limits. Follows commands. Clear speech . Moves all extremities. PSYCHIATRIC: No obvious anxiety/depression. no apparent hallucinations or other psychotic thought process. Assessment & Plan Remarks E.coli sepsis, source usually vs GI - no apparent source - persistent fever - no e/o MDRO markers by marquez REC;s: cont CFTX for now follow blood clx for MICs - fu urine clx repeat blood clx febrile Emily Everett MD Feb 10, 2017 22:35
[2017-02-11] VITALS: BP 122/69; PULSE 79; RESP 18; TEMP 98.8; O2SAT 97
[2017-02-11] MEDS: ACETAMINOPHEN 500 MG CPLT PO PRN (00:08)
[2017-02-11] MEDS: HEPARIN SODIUM - SQ 10,000 UNITS/ML VIAL SQ SCH ×2 (03:55→16:00)
[2017-02-11 06:20] VITALS: TEMP 99
[2017-02-11 06:46] LABS: AUTOMATED NEUTROPHIL # 5.6 TH/MM3 (1.8-7.7); BASOPHIL % 0.4 % (0.0-2.0); CHLORIDE 108 MEQ/L (98-107); EOSINOPHIL # 0.1 TH/MM3 (0-0.4); EOSINOPHIL % 1.3 % (0.0-4.0); HEMATOCRIT 35.9 % (39.0-51.0); LYMPH % 15.1 % (9.0-44.0); LYMPHOCYTE # 1.1 TH/MM3 (1.0-4.8); MEAN CELL VOLUME 88.3 FL (80.0-100.0); MEAN CORPUSCULAR HEMOGLOBIN 30.7 PG (27.0-34.0); MEAN CORPUSCULAR HGB CONC 34.8 % (32.0-36.0); MONO % 10.8 % (0.0-8.0); NEUT % 72.4 % (16.0-70.0); PLATELET COUNT 96 TH/MM3 (150-450); POTASSIUM 3.5 MEQ/L (3.5-5.1); RED BLOOD COUNT 4.07 MIL/MM3 (4.50-5.90); RED CELL DISTRIBUTION WIDTH 12.3 % (11.6-17.2); SODIUM (NA) 142 MEQ/L (136-145); WHITE BLOOD COUNT 7.6 TH/MM3 (4.0-11.0)
[2017-02-11 06:47] LABS: HEMO FLAGS AUTO DIFF
[2017-02-11 06:49] LABS: ANION GAP 7 MEQ/L (5-15); BICARBONATE 26.7 MEQ/L (21.0-32.0); BLOOD UREA NITROGEN 8 MG/DL (7-18)
[2017-02-11 06:52] LABS: ALT (GPT) 20 U/L (12-78); AST (GOT) 19 U/L (15-37); GLOMERULAR FILTRATION RATE 117 ML/MIN (>89)
[2017-02-11 06:54] LABS: TOTAL BILIRUBIN ADULT 0.4 MG/DL (0.2-1.0)
[2017-02-11 06:55] LABS: ALKALINE PHOSPHATASE 77 U/L (45-117)
[2017-02-11 07:13] LABS: PLATELET ESTIMATE SMEAR LOW (NORMAL); PLATELET MORPHOLOGY NORMAL (NORMAL); SCAN/DIFF AUTO DIFF CONFIRMED
[2017-02-11] MEDS: cefTRIAXone INJ 2,000 MG in SODIUM CHLORIDE 0.9% INJ 100 ML IV SCH (08:11)
[2017-02-11] MEDS: SODIUM CHLORIDE 0.9% FLUSH 10 ML FLUSH IV FLUSH SCH ×2 (08:11→22:16)
[2017-02-11] MEDS: DOCUSATE SODIUM 50 MG/SENNA 8.6 MG TAB PO SCH ×2 (08:31→21:00)
[2017-02-11 08:45] VITALS: BP 135/89; PULSE 84; RESP 16; TEMP 98.9; O2SAT 96
[2017-02-11 13:52] VITALS: BP 114/93; PULSE 78; RESP 14; TEMP 99.4; O2SAT 97
--- NOTE | 2017-02-11 17:07 | HHI.PR ---
Subjective History of Present Illness patient feel better no acute issue, low potassium resolved..Blood culture positive for E. Coli Infectious disease input noted increased dose of Rocephin to 2 gram IV Daily. Review of Systems Constitutional Constitutional: Fatigue, Weakness Vitals/Results Intake & Output 02/10/17 02/10/17 02/11/17 15:00 23:00 07:00 Intake Total 1230 ml 480 ml Output Total 350 ml Balance 880 ml 480 ml Intake Oral 1230 ml 480 ml Output Urine Total 350 ml # Voids 4 4 # Bowel Movements 3 0 Vital Signs Vital Signs Date Time Temp Pulse Resp B/P Pulse Ox O2 Delivery O2 Flow Rate FiO2 02/11/17 13:52 99.4 78 14 114/93 97 02/11/17 08:45 98.9 84 16 135/89 96 02/11/17 06:20 99.0 02/11/17 00:00 98.8 79 18 122/69 97 02/10/17 20:00 100.1 90 18 111/81 96 02/10/17 17:30 100.1 71 19 129/72 98 CBC/BMP: 02/11/17 0612 02/11/17 0612 Lab Results Laboratory Tests Test 02/11/17 06:12 White Blood Count 7.6 TH/MM3 Red Blood Count 4.07 MIL/MM3 Hemoglobin 12.5 GM/DL Hematocrit 35.9 % Mean Corpuscular Volume 88.3 FL Mean Corpuscular Hemoglobin 30.7 PG Mean Corpuscular Hemoglobin 34.8 % Concent Red Cell Distribution Width 12.3 % Platelet Count 96 TH/MM3 Mean Platelet Volume 8.9 FL Neutrophils (%) (Auto) 72.4 % Lymphocytes (%) (Auto) 15.1 % Monocytes (%) (Auto) 10.8 % Eosinophils (%) (Auto) 1.3 % Basophils (%) (Auto) 0.4 % Neutrophils # (Auto) 5.6 TH/MM3 Lymphocytes # (Auto) 1.1 TH/MM3 Monocytes # (Auto) 0.8 TH/MM3 Eosinophils # (Auto) 0.1 TH/MM3 Basophils # (Auto) 0.0 TH/MM3 CBC Comment AUTO DIFF Differential Comment AUTO DIFF CONFIRMED Platelet Estimate LOW Platelet Morphology Comment NORMAL Sodium Level 142 MEQ/L Potassium Level 3.5 MEQ/L Chloride Level 108 MEQ/L Carbon Dioxide Level 26.7 MEQ/L Anion Gap 7 MEQ/L Blood Urea Nitrogen 8 MG/DL Creatinine 0.70 MG/DL Estimat Glomerular Filtration 117 ML/MIN Rate Random Glucose 91 MG/DL Calcium Level 8.2 MG/DL Total Bilirubin 0.4 MG/DL Aspartate Amino Transf 19 U/L (AST/SGOT) Alanine Aminotransferase 20 U/L (ALT/SGPT) Alkaline Phosphatase 77 U/L Total Protein 6.1 GM/DL Albumin 2.3 GM/DL Physical Exam General General Appearance: Well Developed, Well Nourished, No Acute Distress, Comfortable Eyes Eye Exam: Sclera White, Extraocular Movement Intact Throat Throat Exam: Oral Mucosa [place] & Moist, Oral Pharynx Normal Neck Neck Exam: Neck Supple, Trachea Midline Pulmonary Resp Exam: Clear Bilaterally, Breath Sounds Equal, No Distress Cardiology CV Exam: Regular, Normal Sinus Rhythm, Good Perfusion Gastrointestinal/Abdomen GI Exam: Soft, Non-Tender, Bowel Sounds Present Genitourinary Exam: Clear Urine Musculoskeletal MS Exam: Normal Tone Integumentary Skin Exam: Clear, Warm, Dry, Intact Extremeties Extremities Exam: No Edema Neurologic Neuro Exam: Alert, Awake, Oriented, Speech Clear, Moving All Extremities, No Focal Deficits Assessment/Plan Assessment/Plan Assessment and Plan Fever Sepsis on admission... Blood culture positive for E. Coli Infectious disease input noted increased dose of Rocephin to 2 gram IV Daily. Sinus tachycardia.. Resolved. Dehydration.. better Hypomagnesemia will replace and monitor. Right inguinal hernia, fat-containing Multiple liver cysts Calcified structure adjacent to the sigmoid, significance unclear Management Empiric antibiotics Follow white count Follow cultures need outpatient colonoscopy Discussed with patient Check CBC with diff CMP in am. Discussed Condition with: Patient Erasmo Washington MD Feb 11, 2017 17:07 Erasmo Washington MD Feb 11, 2017 17:07
[2017-02-11 17:27] VITALS: BP 120/72; PULSE 73; RESP 16; TEMP 99.9; O2SAT 97
[2017-02-11 20:00] VITALS: BP 138/79; PULSE 84; RESP 18; TEMP 99.7; O2SAT 97
--- NOTE | 2017-02-11 23:01 | HHI.IDPN ---
Subjective Subjective Remarks deleayed entry Pt was seen earlier today around 1830 He has low grade fevers up to 99.9 but o/w feels greast Ambulated around hallway Denies any or GI sympts. Never had colonoscopy denies blood per rectum No procedures prior to presentation Antibiotics CFTX Allergies: Coded Allergies: No Known Allergies (Unverified , 02/08/17) Objective . Vital Signs Date Time Temp Pulse Resp B/P Pulse Ox O2 Delivery O2 Flow Rate FiO2 02/11/17 20:00 99.7 84 18 138/79 97 02/11/17 17:27 99.9 73 16 120/72 97 02/11/17 13:52 99.4 78 14 114/93 97 02/11/17 08:45 98.9 84 16 135/89 96 02/11/17 06:20 99.0 02/11/17 00:00 98.8 79 18 122/69 97 02/10/17 02/10/17 02/11/17 15:00 23:00 07:00 Intake Total 1230 ml 480 ml Output Total 350 ml Balance 880 ml 480 ml Intake Oral 1230 ml 480 ml Output Urine Total 350 ml # Voids 4 4 # Bowel Movements 3 0 . Laboratory Tests Test 02/10/17 02/11/17 10:30 06:12 White Blood Count 10.2 TH/MM3 7.6 TH/MM3 Red Blood Count 4.54 MIL/MM3 4.07 MIL/MM3 Hemoglobin 13.6 GM/DL 12.5 GM/DL Hematocrit 40.8 % 35.9 % Mean Corpuscular Volume 89.8 FL 88.3 FL Mean Corpuscular Hemoglobin 30.0 PG 30.7 PG Mean Corpuscular Hemoglobin 33.3 % 34.8 % Concent Red Cell Distribution Width 13.0 % 12.3 % Platelet Count 104 TH/MM3 96 TH/MM3 Mean Platelet Volume 9.1 FL 8.9 FL Neutrophils (%) (Auto) 77.0 % 72.4 % Lymphocytes (%) (Auto) 13.6 % 15.1 % Monocytes (%) (Auto) 8.3 % 10.8 % Eosinophils (%) (Auto) 0.7 % 1.3 % Basophils (%) (Auto) 0.4 % 0.4 % Neutrophils # (Auto) 7.9 TH/MM3 5.6 TH/MM3 Lymphocytes # (Auto) 1.4 TH/MM3 1.1 TH/MM3 Monocytes # (Auto) 0.8 TH/MM3 0.8 TH/MM3 Eosinophils # (Auto) 0.1 TH/MM3 0.1 TH/MM3 Basophils # (Auto) 0.0 TH/MM3 0.0 TH/MM3 CBC Comment AUTO DIFF AUTO DIFF Differential Total Cells 100 Counted Neutrophils % (Manual) 74 % Lymphocytes % 17 % Monocytes % 8 % Eosinophils % 1 % Neutrophils # (Manual) 7.5 TH/MM3 Differential Comment FINAL DIFF AUTO DIFF MANUAL CONFIRMED Platelet Estimate LOW Platelet Morphology Comment NORMAL Laboratory Tests Test 02/10/17 02/11/17 10:30 06:12 Sodium Level 141 MEQ/L 142 MEQ/L Potassium Level 3.5 MEQ/L 3.5 MEQ/L Chloride Level 109 MEQ/L 108 MEQ/L Carbon Dioxide Level 24.0 MEQ/L 26.7 MEQ/L Anion Gap 8 MEQ/L 7 MEQ/L Blood Urea Nitrogen 9 MG/DL 8 MG/DL Creatinine 0.71 MG/DL 0.70 MG/DL Estimat Glomerular Filtration 115 ML/MIN 117 ML/MIN Rate Random Glucose 81 MG/DL 91 MG/DL Calcium Level 7.9 MG/DL 8.2 MG/DL Total Bilirubin 0.4 MG/DL 0.4 MG/DL Aspartate Amino Transf 21 U/L 19 U/L (AST/SGOT) Alanine Aminotransferase 22 U/L 20 U/L (ALT/SGPT) Alkaline Phosphatase 86 U/L 77 U/L Total Protein 6.9 GM/DL 6.1 GM/DL Albumin 2.6 GM/DL 2.3 GM/DL Microbiology Date/Time Procedure Status Source Growth 02/09/17 22:23 Urine Culture - Preliminary Resulted Urine Clean Catch NO GROWTH IN 24 HOURS. 02/11/17 19:55 Aerobic Blood Culture Received Blood Peripheral Pending 02/11/17 19:55 Anaerobic Blood Culture Received Blood Peripheral Pending 02/11/17 20:15 Aerobic Blood Culture Received Blood Peripheral Pending 02/11/17 20:15 Anaerobic Blood Culture Received Blood Peripheral Pending Imaging Last Impressions Chest X-Ray 02/08/17 1238 Signed Impressions: Service Date/Time: Wednesday, February 08, 2017 12:55 - CONCLUSION: Hypoinflation with no acute cardiopulmonary process. Sheng Hooks MD Chest CT 02/08/17 0000 Signed Impressions: Service Date/Time: Wednesday, February 08, 2017 14:05 - CONCLUSION: 1. Lungs are clear. No hilar or mediastinal adenopathy. 2. Innumerable parenchymal cysts throughout the liver probably represents a variant of polycystic kidney disease. Patient is status post cholecystectomy. Sheng Hooks MD Abdomen/Pelvis CT 02/08/17 0000 Signed Impressions: Service Date/Time: Wednesday, February 08, 2017 14:05 - CONCLUSION: 1. Innumerable hepatic cysts likely representing a variant of polycystic kidney disease. 2. A 2.4 cm right inguinal hernia which only contains fat. 3. A 2.75 cm rim calcified benign-appearing structure adjacent to the sigmoid. This may represent a lymph node, old seroma or possibly rim calcified benign duplication cyst Sheng Hooks MD Physical Exam CONSTITUTIONAL/GENERAL: This is an adequately nourished patient, in no apparent distress. TUBES/LINES/DRAINS: SKIN: No jaundice, rashes, or lesions. Skin temperature appropriate. Not diaphoretic. CARDIOVASCULAR: Regular rate and rhythm without murmurs, gallops, or rubs. No JVD. Peripheral pulses symmetric. RESPIRATORY/CHEST: Symmetric, unlabored respirations. Clear to auscultation. Breath sounds equal bilaterally. No wheezes, rales, or rhonchi. GASTROINTESTINAL: Abdomen soft, non-tender, nondistended. No hepato-splenomegaly , or palpable masses. No guarding. Bowel sounds present. GENITOURINARY: Without palpable bladder distension. MUSCULOSKELETAL: Extremities without clubbing, cyanosis, or edema. No joint tenderness or effusion noted. No calf tenderness. No mottling or clubbing. NEUROLOGICAL: Awake and alert. Motor and sensory grossly within normal limits. Follows commands. Clear speech . Moves all extremities. PSYCHIATRIC: No obvious anxiety/depression. no apparent hallucinations or other psychotic thought process. Assessment & Plan Remarks E.coli sepsis, source probably GI - no apparent source - CT and clinically no finding s sugg of diverticulitis or other GI process - persistent fever, low grade -UA, clx not cw UTI REC;s: cont CFTX for now OK to dc on po levaquine 750 daily if bl clx remains negative consider to chk stool for occult blood repeat blood clx febrile Pt needs to fu with GI upon d/c; consider in pt GI consult if stool heme + Emily Everett MD Feb 11, 2017 23:01
[2017-02-12] VITALS: BP 120/66; PULSE 85; RESP 18; TEMP 99.3; O2SAT 98
[2017-02-12 04:00] VITALS: TEMP 99.2
[2017-02-12] MEDS: HEPARIN SODIUM - SQ 10,000 UNITS/ML VIAL SQ SCH ×2 (04:00→16:00)
[2017-02-12 06:03] LABS: AUTOMATED NEUTROPHIL # 4.1 TH/MM3 (1.8-7.7); BASOPHIL % 0.3 % (0.0-2.0); EOSINOPHIL # 0.1 TH/MM3 (0-0.4); EOSINOPHIL % 1.6 % (0.0-4.0); HEMATOCRIT 34.8 % (39.0-51.0); HEMO FLAGS DIFF FINAL; LYMPH % 23.1 % (9.0-44.0); LYMPHOCYTE # 1.5 TH/MM3 (1.0-4.8); MEAN CELL VOLUME 87.6 FL (80.0-100.0); MEAN CORPUSCULAR HEMOGLOBIN 30.4 PG (27.0-34.0); MEAN CORPUSCULAR HGB CONC 34.7 % (32.0-36.0); PLATELET COUNT 120 TH/MM3 (150-450); RED BLOOD COUNT 3.97 MIL/MM3 (4.50-5.90); RED CELL DISTRIBUTION WIDTH 12.2 % (11.6-17.2); WHITE BLOOD COUNT 6.5 TH/MM3 (4.0-11.0)
[2017-02-12 06:17] LABS: CHLORIDE 107 MEQ/L (98-107); POTASSIUM 3.3 MEQ/L (3.5-5.1); SODIUM (NA) 142 MEQ/L (136-145)
[2017-02-12 06:26] LABS: ANION GAP 8 MEQ/L (5-15); BICARBONATE 26.6 MEQ/L (21.0-32.0); BLOOD UREA NITROGEN 7 MG/DL (7-18)
[2017-02-12 06:29] LABS: ALT (GPT) 22 U/L (12-78); AST (GOT) 20 U/L (15-37); GLOMERULAR FILTRATION RATE 148 ML/MIN (>89)
[2017-02-12 06:31] LABS: TOTAL BILIRUBIN ADULT 0.5 MG/DL (0.2-1.0)
[2017-02-12 06:32] LABS: ALKALINE PHOSPHATASE 68 U/L (45-117)
--- NOTE | 2017-02-12 08:26 | HHI.PR ---
Subjective History of Present Illness Patient feel better no acute issue, low potassium will replace ..Blood culture positive for E. Coli Infectious disease input noted repeat blood culture done checking FOBT Discharge plan when ok with infectious disease. Review of Systems Constitutional Constitutional: Fatigue, Weakness Vitals/Results Intake & Output 02/11/17 02/11/17 02/12/17 15:00 23:00 07:00 Intake Total 1980 ml 600 ml Balance 1980 ml 600 ml Intake Oral 1980 ml 600 ml # Voids 6 2 # Bowel Movements 1 0 Vital Signs Vital Signs Date Time Temp Pulse Resp B/P Pulse Ox O2 Delivery O2 Flow Rate FiO2 02/12/17 04:00 99.2 02/12/17 00:00 99.3 85 18 120/66 98 02/11/17 20:00 99.7 84 18 138/79 97 02/11/17 17:27 99.9 73 16 120/72 97 02/11/17 13:52 99.4 78 14 114/93 97 02/11/17 08:45 98.9 84 16 135/89 96 CBC/BMP: 02/12/17 0512 02/12/17 0512 Lab Results Laboratory Tests Test 02/12/17 05:12 White Blood Count 6.5 TH/MM3 Red Blood Count 3.97 MIL/MM3 Hemoglobin 12.1 GM/DL Hematocrit 34.8 % Mean Corpuscular Volume 87.6 FL Mean Corpuscular Hemoglobin 30.4 PG Mean Corpuscular Hemoglobin 34.7 % Concent Red Cell Distribution Width 12.2 % Platelet Count 120 TH/MM3 Mean Platelet Volume 8.7 FL Neutrophils (%) (Auto) 63.0 % Lymphocytes (%) (Auto) 23.1 % Monocytes (%) (Auto) 12.0 % Eosinophils (%) (Auto) 1.6 % Basophils (%) (Auto) 0.3 % Neutrophils # (Auto) 4.1 TH/MM3 Lymphocytes # (Auto) 1.5 TH/MM3 Monocytes # (Auto) 0.8 TH/MM3 Eosinophils # (Auto) 0.1 TH/MM3 Basophils # (Auto) 0.0 TH/MM3 CBC Comment DIFF FINAL Differential Comment Sodium Level 142 MEQ/L Potassium Level 3.3 MEQ/L Chloride Level 107 MEQ/L Carbon Dioxide Level 26.6 MEQ/L Anion Gap 8 MEQ/L Blood Urea Nitrogen 7 MG/DL Creatinine 0.57 MG/DL Estimat Glomerular Filtration 148 ML/MIN Rate Random Glucose 93 MG/DL Calcium Level 8.1 MG/DL Total Bilirubin 0.5 MG/DL Aspartate Amino Transf 20 U/L (AST/SGOT) Alanine Aminotransferase 22 U/L (ALT/SGPT) Alkaline Phosphatase 68 U/L Total Protein 6.1 GM/DL Albumin 2.3 GM/DL Microbiology Microbiology 02/11/17 Aerobic Blood Culture, Received Pending 02/11/17 Anaerobic Blood Culture, Received Pending 02/11/17 Aerobic Blood Culture, Received Pending 02/11/17 Anaerobic Blood Culture, Received Pending Physical Exam General General Appearance: Well Developed, Well Nourished, No Acute Distress, Comfortable Eyes Eye Exam: Sclera White, Extraocular Movement Intact Throat Throat Exam: Oral Mucosa [place] & Moist, Oral Pharynx Normal Neck Neck Exam: Neck Supple, Trachea Midline Pulmonary Resp Exam: Clear Bilaterally, Breath Sounds Equal, No Distress Cardiology CV Exam: Regular, Normal Sinus Rhythm, Good Perfusion Gastrointestinal/Abdomen GI Exam: Soft, Non-Tender, Bowel Sounds Present Genitourinary Exam: Clear Urine Musculoskeletal MS Exam: Normal Tone Integumentary Skin Exam: Clear, Warm, Dry, Intact Extremeties Extremities Exam: No Edema Neurologic Neuro Exam: Alert, Awake, Oriented, Speech Clear, Moving All Extremities, No Focal Deficits Assessment/Plan Assessment/Plan Assessment and Plan Fever Sepsis on admission... Blood culture positive for E. Coli Infectious disease input noted on Rocephin to 2 gram IV Daily. repeat blood culture negative so far. Sinus tachycardia.. Resolved. Dehydration.. better Hypomagnesemia Resolved. Right inguinal hernia, fat-containing Multiple liver cysts Calcified structure adjacent to the sigmoid, significance unclear Hypokalemia will replace and monitor. Management Empiric antibiotics Follow white count Follow cultures need outpatient colonoscopy Discussed with patient Check CBC with diff CMP in am. Discussed Condition with: Patient Erasmo Washington MD Feb 12, 2017 08:26
[2017-02-12] MEDS: DOCUSATE SODIUM 50 MG/SENNA 8.6 MG TAB PO SCH ×2 (09:52→21:00)
[2017-02-12 09:55] VITALS: BP 138/77; PULSE 78; RESP 16; TEMP 98.9; O2SAT 95
[2017-02-12] MEDS: cefTRIAXone INJ 2,000 MG in SODIUM CHLORIDE 0.9% INJ 100 ML IV SCH (09:56)
[2017-02-12] MEDS: SODIUM CHLORIDE 0.9% FLUSH 10 ML FLUSH IV FLUSH SCH ×2 (09:56→21:00)
[2017-02-12 12:00] VITALS: BP 118/76; PULSE 81; RESP 16; TEMP 99.4; O2SAT 98
[2017-02-12] MEDS ORDERED: POTASSIUM CHLORIDE 10 MEQ CONTROLLED RELEASE TAB PO ONE (13:00)
--- NOTE | 2017-02-12 15:12 | HHI.PR ---
Addendum to Inpatient Note Additional Information BC is negative pt is afebrile OK to d/c pt home on PO levaquine 750 mg for 10 days Pt needs to fu with PCP and see GI to r/o GI pathology for his o/w unexplained sepsis FU repeat bl clx untill final chk stool for occult blood (can be done as o/p) dw Dr Padmini Everett,Emily King MD Feb 12, 2017 15:12
[2017-02-12 18:44] VITALS: BP 145/71; PULSE 82; RESP 15; TEMP 98.8; O2SAT 98
[2017-02-12 20:00] VITALS: BP 121/81; PULSE 93; RESP 18; TEMP 100; O2SAT 95
[2017-02-12] MEDS ORDERED: LEVO750T3 PO (21:36)
--- NOTE | 2017-02-15 07:35 | MD ---
cc: AZUCENA SIDDIQUI MD ADMISSION DATE: 02/08/2017 DISCHARGE DATE: 02/12/2017 DISPOSITION: Okay to discharge the patient. CONDITION ON DISCHARGE: Satisfactory Activity: As tolerated. Diet: Cardiac diet. ALLERGIES NO KNOWN DRUG ALLERGIES. DISCHARGE MEDICATIONS Levaquin 750 mg p.o. daily. FOLLOWUP: The patient was to follow up GI and PCP in 1 week. ADMISSION DIAGNOSIS Fever, sepsis on admission. Blood culture positive for E-coli and the patient was given Rocephin 2 grams IV daily per infectious disease, Dr. Ortiz Cohen. Blood culture was negative. The patient had a sinus tachycardia which resolved. The patient also had dehydration which is improved. The patient also had hypomagnesemia which resolved. The patient also had hypokalemia which we replaced the potassium. The patient was given empiric antibiotic. The patient was discharged home on Levaquin 750 milligrams p.o. daily for ten days per the Infectious Disease, Dr. Everett. RECOMMENDATIONS I had discussed the case with Dr. Everett. Per Dr. Everett, the patient needs to see a GI doctor and have endoscopy done for the source of the E-coli sepsis. The patient's urinalysis was normal. The patient had a CT chest which was done, shows lungs are clear. No hilar mediastinal adenopathy, innumerable parenchymal cysts throughout the liver probably represents a variant of polycystic kidney disease. The patient is status post cholecystectomy. CT of the abdomen and pelvis was done shows innumerable hepatic cyst likely represent a variant of polycystic kidney disease. A 2.4 cm right inguinal hernia which only contains fat, and a 2.75 cm calcified benign appearing stricture adjacent to the sigmoid. This may represent a lymph node, old seroma or possibly calcified benign duplication cyst. Chest x-ray was done shows hypoinflation with acute cardiopulmonary process. The patient had a hemoglobin of 12.1, hematocrit 34.8. The patient had hypokalemia which was replaced during the hospital stay. The patient also had low protein 6.1 and low albumin 2.3. Patient's INR was 1.2. APTT 26.18. PT was 12.9. Urine examination was normal. Blood culture was positive for E. Coli. Repeat blood culture was negative for one day. Other details in the medical records. MD CECI Hamilton /9:45 PM /7:28 AM
== END 2017-02-12 22:15 | disposition home or self-care (01) | DRG 872 ==
LOC: PHED 12:20 → PHEDA 15:16 → OBSVTOIN 15:18 → PH3A 16:57
PROVIDERS: ADMIT Family Medicine; ATTEND Family Medicine
DX: A41.51 Sepsis due to Escherichia coli [E. coli] (principal); E87.2 Acidosis; D69.6 Thrombocytopenia, unspecified; Q61.3 Polycystic kidney, unspecified; E83.42 Hypomagnesemia; K76.89 Other specified diseases of liver; E86.0 Dehydration; K21.9 Gastro-esophageal reflux disease without esophagitis; E66.9 Obesity, unspecified; K40.90 Unilateral inguinal hernia, without obstruction or gangrene, not specified as recurrent; E87.6 Hypokalemia
CPT/HCPCS: 71010; 71260; 74177; 80048; 80053; 81001; 82272; 82805; 83605; 83735; 84484; 85007; 85025; 85027; 85610; 85730; 87040; 87077; 87086; 87186; 87205; 87804; 93005; 96361; 96365; 96368; 96375; J0696; J1644; J2543; J3370; J3475; J7030; J7050; Q9967

== ENCOUNTER 2017-09-18 11:44 | Inpatient (IN) | payer BC ==
[2017-09-18] VITALS (9 sets, daily range): BP systolic 94–148; BP diastolic 55–90; PULSE 78–125; RESP 14–22; TEMP 98–103.1; O2SAT 91–98
[~2017-09-18] VITALS: Ht 180.3 cm; Wt 126.3 kg
[~2017-09-18 11:44] MED LIST: LEVO750T3 PO; acid reflux med
[2017-09-18] MEDS ORDERED: SODIUM CHLOR 0.9% 1000 ML INJ 1,000 ML IV ONE ×2 (12:09)
[2017-09-18] MEDS ORDERED: ACETAMINOPHEN 325 MG TAB PO ONE (12:15)
[2017-09-18 12:27] LABS: BASOPHIL # 0.2 TH/MM3 (0-0.2); EOSINOPHIL % 0.1 % (0.0-4.0); HEMATOCRIT 43.4 % (39.0-51.0); HEMOGLOBIN 14.6 GM/DL (13.0-17.0); LYMPH % 7.2 % (9.0-44.0); LYMPHOCYTE # 0.5 TH/MM3 (1.0-4.8); MEAN CELL VOLUME 89.9 FL (80.0-100.0); MEAN CORPUSCULAR HEMOGLOBIN 30.2 PG (27.0-34.0); MEAN CORPUSCULAR HGB CONC 33.6 % (32.0-36.0); MEAN PLATELET VOLUME 8.5 FL (7.0-11.0); MONO % 1.9 % (0.0-8.0); MONOCYTE # 0.1 TH/MM3 (0-0.9); NEUT % 87.8 % (16.0-70.0); PLATELET COUNT 140 TH/MM3 (150-450); RED BLOOD COUNT 4.82 MIL/MM3 (4.50-5.90); RED CELL DISTRIBUTION WIDTH 11.8 % (11.6-17.2); WHITE BLOOD COUNT 6.8 TH/MM3 (4.0-11.0)
--- NOTE | 2017-09-18 12:36 | RADRPT ---
EXAM DATE/TIME: 09/18/2017 12:20 [facility] COMPARISON: CHEST SINGLE AP, February 08, 2017, 12:55. INDICATIONS : Fever, chills. MEDICAL HISTORY : None. SURGICAL HISTORY : Cholecystectomy. Hernia repair. ENCOUNTER: Initial ACUITY: 2 days PAIN SCORE: 4/10 LOCATION: chest FINDINGS: Portable AP view of the chest demonstrates a normal-sized cardiac silhouette. The lungs demonstrate n o definite effusion, consolidation, or pneumothorax. The bones and soft tissues demonstrate no acute finding. EKG lines overlie the patient. CONCLUSION: No acute cardiopulmonary abnormality is identified. Champ Frye MD on September 18, 2017 at 12:33 Board Certified Radiologist. This report was verified electronically.
[2017-09-18 12:39] LABS: CHLORIDE 104 MEQ/L (98-107); SODIUM (NA) 136 MEQ/L (136-145)
[2017-09-18 12:43] LABS: ALBUMIN 3.4 GM/DL (3.4-5.0); BICARBONATE 21.9 MEQ/L (21.0-32.0); BLOOD UREA NITROGEN 12 MG/DL (7-18); CALCIUM 8.5 MG/DL (8.5-10.1); GLUCOSE,RANDOM 150 MG/DL (74-106); MAGNESIUM 1.5 MG/DL (1.5-2.5)
[2017-09-18 12:46] LABS: ALT (GPT) 16 U/L (12-78); AST (GOT) 18 U/L (15-37); GLOMERULAR FILTRATION RATE 77 ML/MIN (>89)
[2017-09-18 12:48] LABS: TOTAL PROTEIN 7.4 GM/DL (6.4-8.2)
[2017-09-18 12:49] LABS: ALKALINE PHOSPHATASE 103 U/L (45-117)
[2017-09-18 12:51] LABS: LACTIC ACID SEPSIS PROTOCOL 2.3 mmol/L (0.4-2.0)
--- NOTE | 2017-09-18 12:57 | PD ---
HPI Chief Complaint: Fever Time Seen by Provider: 12:09 Travel History International Travel<30 days: No Contact w/Intl Traveler<30days: No Traveled to known affect area: No History of Present Illness HPI the patient's 57 years old. He reports fever or chills diaphoresis today. He reports a history of sepsis with Escherichia coli positive culture is which presented in a similar fashion. He has no chest pain shortness of breath nausea or vomiting. He's had no diarrhea and denies cough. Abdomen last time the cause of sepsis is unknown. Duration of symptoms but 24 hours. They worsened in the last 12. History Past Medical History Tetanus Vaccination: > 5 Years Influenza Vaccination: No Social History Alcohol Use: Yes (RARE) Tobacco Use: No Allergies-Medications (Allergen,Severity, Reaction): Coded Allergies: No Known Allergies (Unverified Allergy, Unknown, 09/18/17) Reported Meds & Prescriptions Reported Meds & Active Scripts Active No Active Prescriptions or Reported Medications Review of Systems Except as stated in HPI: all other systems reviewed are Neg General / Constitutional: Positive: Fever Physical Exam Narrative GENERAL: Well-nourished well-developed 57-year-old male resting comfortably in bed Vital Signs Date Time Temp Pulse Resp B/P (MAP) Pulse Ox O2 Delivery O2 Flow Rate FiO2 09/18/17 13:59 102.7 114 18 148/82 (104) 96 Nasal Cannula 2.00 09/18/17 13:59 102.7 114 18 148/82 (104) 96 2.00 09/18/17 12:56 103.1 108 18 135/55 (81) 96 Nasal Cannula 2.00 09/18/17 12:20 95 Nasal Cannula 2.00 09/18/17 12:20 95 Nasal Cannula 2.00 09/18/17 12:05 112 93 Room Air 09/18/17 12:05 102.8 120 22 110/65 (80) 93 Room Air 09/18/17 11:51 102.8 125 20 133/61 (85) 91 SKIN: Warm and dry. HEAD: Atraumatic. Normocephalic. EYES: Pupils equal and round. No scleral icterus. No injection or drainage. ENT: No nasal bleeding or discharge. Mucous membranes pink and moist. NECK: Trachea midline. No JVD. CARDIOVASCULAR: Tachycardia. Regular rhythm. RESPIRATORY: No accessory muscle use. Clear to auscultation. Breath sounds equal bilaterally. GASTROINTESTINAL: Abdomen soft, non-tender, nondistended. Hepatic and splenic margins not palpable. MUSCULOSKELETAL: Extremities without clubbing, cyanosis, or edema. No obvious deformities. NEUROLOGICAL: Awake and alert. No obvious cranial nerve deficits. Motor grossly within normal limits. Five out of 5 muscle strength in the arms and legs. Normal speech. PSYCHIATRIC: Appropriate mood and affect; insight and judgment normal. Data Data Last Documented VS Vital Signs Date Time Temp Pulse Resp B/P (MAP) Pulse Ox O2 Delivery O2 Flow Rate FiO2 09/18/17 13:59 102.7 114 18 148/82 (104) 96 Nasal Cannula 2.00 Vital signs reviewed Orders Orders Sepsis Workup Initiated (09/18/17 ) Complete Blood Count With Diff (09/18/17 12:09) Comprehensive Metabolic Panel (09/18/17 12:09) Lactic Acid Sepsis Protocol (09/18/17 12:09) Magnesium (Mg) (09/18/17 12:09) Lipase (09/18/17 12:09) Ckmb (Isoenzyme) Profile (09/18/17 12:09) Urinalysis - C+S If Indicated (09/18/17 12:09) Influenzae A/B Antigen (09/18/17 12:09) Blood Culture (09/18/17 12:09) Chest, Single Ap (09/18/17 12:09) Blood Glucose (09/18/17 12:09) Ecg Monitoring (09/18/17 12:09) Iv Access Insert/Monitor (09/18/17 12:09) Oximetry (09/18/17 12:09) Oxygen Administration (09/18/17 12:09) Acetaminophen (Tylenol) (09/18/17 12:15) Sodium Chlor 0.9% 1000 Ml Inj (Ns 1000 M (09/18/17 12:09) Sodium Chlor 0.9% 1000 Ml Inj (Ns 1000 M (09/18/17 12:09) Lactic Acid (09/18/17 13:00) Piperacil-Tazo 4.5 Gm Premix (Zosyn 4.5 (09/18/17 13:15) Labs Laboratory Tests Test 09/18/17 12:10 09/18/17 14:15 White Blood Count 6.8 TH/MM3 Red Blood Count 4.82 MIL/MM3 Hemoglobin 14.6 GM/DL Hematocrit 43.4 % Mean Corpuscular Volume 89.9 FL Mean Corpuscular Hemoglobin 30.2 PG Mean Corpuscular Hemoglobin Concent 33.6 % Red Cell Distribution Width 11.8 % Platelet Count 140 TH/MM3 Mean Platelet Volume 8.5 FL Neutrophils (%) (Auto) 87.8 % Lymphocytes (%) (Auto) 7.2 % Monocytes (%) (Auto) 1.9 % Eosinophils (%) (Auto) 0.1 % Basophils (%) (Auto) 3.0 % Neutrophils # (Auto) 6.0 TH/MM3 Lymphocytes # (Auto) 0.5 TH/MM3 Monocytes # (Auto) 0.1 TH/MM3 Eosinophils # (Auto) 0.0 TH/MM3 Basophils # (Auto) 0.2 TH/MM3 CBC Comment DIFF FINAL Differential Comment Blood Urea Nitrogen 12 MG/DL Creatinine 1.00 MG/DL Random Glucose 150 MG/DL Total Protein 7.4 GM/DL Albumin 3.4 GM/DL Calcium Level 8.5 MG/DL Magnesium Level 1.5 MG/DL Alkaline Phosphatase 103 U/L Aspartate Amino Transf (AST/SGOT) 18 U/L Alanine Aminotransferase (ALT/SGPT) 16 U/L Total Bilirubin 1.0 MG/DL Sodium Level 136 MEQ/L Potassium Level 3.6 MEQ/L Chloride Level 104 MEQ/L Carbon Dioxide Level 21.9 MEQ/L Anion Gap 10 MEQ/L Estimat Glomerular Filtration Rate 77 ML/MIN Lactic Acid Level 2.3 mmol/L Total Creatine Kinase 54 U/L Lipase 196 U/L MDM Medical Decision Making Medical Screen Exam Complete: Yes Emergency Medical Condition: Yes Differential Diagnosis Sepsis, severe sepsis, UTI, pneumonia Narrative Course CBC & BMP Diagram 09/18/17 12:10 Total Protein 7.4, Albumin 3.4, Calcium Level 8.5, Magnesium Level 1.5, Alkaline Phosphatase 103, Aspartate Amino Transf (AST/SGOT) 18, Alanine Aminotransferase (ALT/SGPT) 16, Total Bilirubin 1.0 Lactic acid 2.3 Lipase 196 Fever has persisted. Patient's received 3 L of saline with a pulse of 101. Based on the numbers the patient meets severe sepsis criteria however last time there is no definitive etiology. There is no likely etiology at this time. Blood cultures started. Zosyn given. Admission for IV antibiotics and ongoing monitoring. d/w Dr Harrison Sepsis Criteria SIRS Criteria (2 or more): Temp > 100.9 or < 96.8, Heart rate over 90 Sepsis Criteria (SIRS+source): Infect source susp/known Severe Sepsis (+one): Lactate >2 Diagnosis Primary Impression: Sepsis Qualified Codes: A41.9 - Sepsis, unspecified organism Admitting Information Admitting Physician Requests: Observation Scripts No Active Prescriptions or Reported Meds Brigido Jackson MD Sep 18, 2017 12:57
[2017-09-18] MEDS ORDERED: PIPERACIL-TAZO 4.5 GM PREMIX 100 ML IV ONE (13:15)
[2017-09-18 14:27] LABS: BILIRUBIN, URINE NEG (NEG); BLOOD, URINE NEG (NEG); GLUCOSE,URINE NEG (NEG); KETONE, URINE NEG (NEG); NITRITE,URINE NEG (NEG); PH, URINE 5.5 (5.0-8.5); URINE LEUKOCYTE ESTERASE NEG (NEG)
[2017-09-18 14:35] LABS: URINE COLOR YELLOW (YELLW/STRAW)
[2017-09-18] MEDS ORDERED: ACETAMINOPHEN 325 MG TAB PO PRN (14:45)
[2017-09-18] MEDS ORDERED: NALOXONE HCL 0.4 MG/ML AMP IV PUSH PRN (14:45)
[2017-09-18] MEDS ORDERED: SENNOSIDES 8.6 MG TAB PO PRN (14:45)
[2017-09-18] MEDS ORDERED: ONDANSETRON HCL 4 MG/2 ML VIAL IVP PRN (14:45)
[2017-09-18] MEDS ORDERED: SODIUM CHLORIDE 0.9% FLUSH 10 ML FLUSH IV FLUSH PRN (14:45)
[2017-09-18 14:58] LABS: BACTERIA, URINE MANY /hpf
[2017-09-18 14:59] LABS: WHITE BLOOD CELL CLUMPS FEW
[2017-09-18 15:00] LABS: SQUAMOUS EPITHELIAL CELL URINE 0-5 /hpf (0-5)
--- NOTE | 2017-09-18 16:31 | HHI.HP ---
HPI Service [facility] Primary Care Physician Seth Henley DO Admission Diagnosis Sepsis; Unknown Etiology Diagnoses: Chief Complaint: Fever Travel History International Travel<30 Days: No Contact w/Intl Traveler <30 Da: No Traveled to Known Affected Are: No History of Present Illness This patient is a 57-year-old gentleman comes to the hospital with high-grade fevers and chills without a source. Previously he had a similar episode and ended up with Escherichia coli bacteremia. He denies any chest pain or shortness of breath but does have some frontal sinus pressure has been new over the last several days. He had a workup the last admission and this included endoscopy upper and lower which were cleaned per the patient. This time he has occasional loose stools which are unchanged over the last year. He has otherwise no symptoms no rashes, no urinary troubles. Patient's temperature has been as high as 103. His heart rate is in the 120s and he has been recommended for admission for these worrisome findings. Review of Systems Constitutional: COMPLAINS OF: Fatigue, Chills, Night Sweats, DENIES: Diaphoretic episodes, Fever, Weight gain, Weight loss, Dizziness, Change in appetite Endocrine: DENIES: Heat/cold intolerance, Polydipsia, Polyuria, Polyphagia Eyes: DENIES: Blurred vision, Diplopia, Eye inflammation, Eye pain, Vision loss , Photosensitivity, Double Vision Ears, nose, mouth, throat: DENIES: Tinnitus, Hearing loss, Vertigo, Nasal discharge, Oral lesions, Throat pain, Hoarseness, Ear Pain, Running Nose, Epistaxis, Sinus Pain, Toothache, Odynophagia Respiratory: DENIES: Apneas, Cough, Snoring, Wheezing, Hemoptysis, Sputum production, Shortness of breath Cardiovascular: DENIES: Chest pain, Palpitations, Syncope, Dyspnea on Exertion , PND, Lower Extremity Edema, Orthopnea, Claudication Gastrointestinal: DENIES: Abdominal pain, Black stools, Bloody stools, Constipation, Diarrhea, Nausea, Vomiting, Difficulty Swallowing, Anorexia Genitourinary: DENIES: Sexual dysfunction, Urinary frequency, Urinary incontinence, Urgency, Hematuria, Dysuria, Nocturia, Penile Discharge, Testicular Pain, Testicular Swelling Musculoskeletal: DENIES: Joint pain, Muscle aches, Stiffness, Joint Swelling, Back pain, Neck pain Integumentary: DENIES: Abnormal pigmentation, Nail changes, Pruritus, Rash Hematologic/lymphatic: DENIES: Bruising, Lymphadenopathy Immunologic/allergic: DENIES: Eczema, Urticaria Neurologic: COMPLAINS OF: Headache (frontal sinus), DENIES: Abnormal gait, Localized weakness, Paresthesias, Seizures, Speech Problems, Tremor, Poor Balance Psychiatric: DENIES: Anxiety, Confusion, Mood changes, Depression, Hallucinations, Agitation, Suicidal Ideation, Homicidal Ideation, Delusions Except as stated in HPI: all other systems reviewed are Neg Past Family Social History Past Medical History Denies Past Surgical History Cholecystectomy Reported Medications Denies Allergies: Coded Allergies: No Known Allergies (Unverified Allergy, Unknown, 09/18/17) Active Ordered Medications Denies Family History Hypertension Social History No tobacco, occasional alcohol, , 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 Physical Exam Vital Signs Vital Signs Date Time Temp Pulse Resp B/P (MAP) Pulse Ox O2 Delivery O2 Flow Rate FiO2 09/18/17 14:54 100.7 112 18 98 Nasal Cannula 2.00 09/18/17 13:59 102.7 114 18 148/82 (104) 96 Nasal Cannula 2.00 09/18/17 13:59 102.7 114 18 148/82 (104) 96 2.00 09/18/17 12:56 103.1 108 18 135/55 (81) 96 Nasal Cannula 2.00 09/18/17 12:20 95 Nasal Cannula 2.00 09/18/17 12:20 95 Nasal Cannula 2.00 09/18/17 12:05 112 93 Room Air 09/18/17 12:05 102.8 120 22 110/65 (80) 93 Room Air 09/18/17 11:51 102.8 125 20 133/61 (85) 91 Physical Exam GENERAL: This is a well-nourished, well-developed patient, diaphoretic SKIN: No rashes, ecchymoses or lesions. Cool and dry. HEAD: Atraumatic. Normocephalic. No temporal or scalp tenderness. EYES: Pupils equal round and reactive. Extraocular motions intact. No scleral icterus. No injection or drainage. ENT: Nose without bleeding, purulent drainage or septal hematoma. Throat without erythema, tonsillar hypertrophy or exudate. Uvula midline. Airway patent. NECK: Trachea midline. No JVD or lymphadenopathy. Supple, nontender, no meningeal signs. CARDIOVASCULAR: Regular rate and rhythm without murmurs, gallops, or rubs. RESPIRATORY: Clear to auscultation. Breath sounds equal bilaterally. No wheezes , rales, or rhonchi. GASTROINTESTINAL: Abdomen soft, non-tender, nondistended. No hepato-splenomegaly , or palpable masses. No guarding. MUSCULOSKELETAL: Extremities without clubbing, cyanosis, or edema. No joint tenderness, effusion, or edema noted. No calf tenderness. Negative Homans sign bilaterally. NEUROLOGICAL: Awake and alert. Cranial nerves II through XII intact. Motor and sensory grossly within normal limits. Five out of 5 muscle strength in all muscle groups. Normal speech. Laboratory Laboratory Tests Test 09/18/17 12:10 09/18/17 14:15 09/18/17 14:30 White Blood Count 6.8 Red Blood Count 4.82 Hemoglobin 14.6 Hematocrit 43.4 Mean Corpuscular Volume 89.9 Mean Corpuscular Hemoglobin 30.2 Mean Corpuscular Hemoglobin Concent 33.6 Red Cell Distribution Width 11.8 Platelet Count 140 Mean Platelet Volume 8.5 Neutrophils (%) (Auto) 87.8 Lymphocytes (%) (Auto) 7.2 Monocytes (%) (Auto) 1.9 Eosinophils (%) (Auto) 0.1 Basophils (%) (Auto) 3.0 Neutrophils # (Auto) 6.0 Lymphocytes # (Auto) 0.5 Monocytes # (Auto) 0.1 Eosinophils # (Auto) 0.0 Basophils # (Auto) 0.2 CBC Comment DIFF FINAL Differential Comment Blood Urea Nitrogen 12 Creatinine 1.00 Random Glucose 150 Total Protein 7.4 Albumin 3.4 Calcium Level 8.5 Magnesium Level 1.5 Alkaline Phosphatase 103 Aspartate Amino Transf (AST/SGOT) 18 Alanine Aminotransferase (ALT/SGPT) 16 Total Bilirubin 1.0 Sodium Level 136 Potassium Level 3.6 Chloride Level 104 Carbon Dioxide Level 21.9 Anion Gap 10 Estimat Glomerular Filtration Rate 77 Lactic Acid Level 2.3 1.4 Total Creatine Kinase 54 Lipase 196 Urine Collection Type CLEAN CATCH Urine Color YELLOW Urine Turbidity SLIGHTY CLOUDY Urine pH 5.5 Urine Specific [place] 1.031 Urine Protein NEG Urine Glucose (UA) NEG Urine Ketones NEG Urine Occult Blood NEG Urine Nitrite NEG Urine Bilirubin NEG Urine Leukocyte Esterase NEG Urine WBC 20-24 Urine WBC Clumps FEW Urine Squamous Epithelial Cells 0-5 Urine Bacteria MANY Microscopic Urinalysis Comment CULTURE INDICATED Date/Time Source Procedure Growth Status 09/18/17 12:15 Blood Peripheral Aerobic Blood Culture Pending Received 09/18/17 12:15 Blood Peripheral Anaerobic Blood Culture Pending Received 09/18/17 12:15 Nasal Aspirate Influenza Types A,B Antigen (ELSI) - Final NEGATIVE FOR FLU A AND B ANTIGEN.... Complete 09/18/17 14:15 Urine Clean Catch Urine Culture Pending Received Result Diagram: 09/18/17 1210 09/18/17 1210 Imaging Last Impressions Chest X-Ray 09/18/17 1209 Signed Impressions: Service Date/Time: Monday, September 18, 2017 12:20 - CONCLUSION: No acute cardiopulmonary abnormality is identified. Champ Frye MD Septic Shock Reassessment Septic shock perfusion: reassessment completed Caprini VTE Risk Assessment Caprini VTE Risk Assessment: No/Low Risk (score <= 1) Caprini Risk Assessment Model Point Value = 1 Point Value = 2 Point Value = 3 Point Value = 5 Age 41-60 Minor surgery BMI > 25 kg/m2 Swollen legs Varicose veins or History of unexplained or recurrent spontaneous Oral contraceptives or hormone replacement Sepsis (< 1 month) Serious lung disease, including pneumonia (< 1 month) Abnormal pulmonary function Acute myocardial infarction Congestive heart failure (< 1 month) History of inflammatory bowel disease Medical patient at bed rest Age 61-74 Arthroscopic surgery Major open surgery (> 45 min) Laparoscopic surgery (> 45 min) Malignancy Confined to bed (> 72 hours) Immobilizing plaster cast Central venous access Age >= 75 History of VTE Family history of VTE Factor V Leiden Prothrombin [id number] Lupus anticoagulant Anticardiolipin antibodies Elevated serum homocysteine Heparin-induced thrombocytopenia Other congenital or acquired thrombophilia Stroke (< 1 month) Elective arthroplasty Hip, pelvis, or leg fracture Acute spinal cord injury (< 1 month) Prophylaxis Regimen Total Risk Factor Score Risk Level Prophylaxis Regimen 0-1 Low Early ambulation 2 Moderate Order ONE of the following: *Sequential Compression Device (SCD) *Heparin 5000 units SQ BID 3-4 Higher Order ONE of the following medications: *Heparin 5000 units SQ TID *Enoxaparin/Lovenox 40 mg SQ daily (WT < 150 kg, CrCl > 30 mL/min) *Enoxaparin/Lovenox 30 mg SQ daily (WT < 150 kg, CrCl > 10-29 mL/min) *Enoxaparin/Lovenox 30 mg SQ BID (WT < 150 kg, CrCl > 30 mL/min) AND/OR *Sequential Compression Device (SCD) 5 or more Highest Order ONE of the following medications: *Heparin 5000 units SQ TID (Preferred with Epidurals) *Enoxaparin/Lovenox 40 mg SQ daily (WT < 150 kg, CrCl > 30 mL/min) *Enoxaparin/Lovenox 30 mg SQ daily (WT < 150 kg, CrCl > 10-29 mL/min) *Enoxaparin/Lovenox 30 mg SQ BID (WT < 150 kg, CrCl > 30 mL/min) AND *Sequential Compression Device (SCD) Assessment and Plan Problem List: (1) Febrile illness ICD Code: R50.9 - Fever, unspecified Status: Acute Plan: Empiric antibiotics Source unknown, follow-up CT of sinuses Previous Escherichia coli bacteremia with unknown source His lactic acid is improved No leukocytosis Flu is negative Assessment and Plan Plan of care to be determined by Hospital course Code Status Full code Discussed Condition With Patient, spouse Physician Certification 2 Midnight Certification Type: Admission for Inpatient Services Order for Inpatient Services The services are ordered in accordance with Medicare regulations or non- Medicare payer requirements, as applicable. In the case of services not specified as inpatient-only, they are appropriately provided as inpatient services in accordance with the 2-midnight benchmark. Estimated LOS (days): 3 days is the estimated time the patient will need to remain in the hospital, assuming treatment plan goals are met and no additional complications. Post-Hospital Plan: Home Priya Harrison MD Sep 18, 2017 16:31
[2017-09-18] MEDS: SODIUM CHLOR 0.9% 1000 ML INJ 1,000 ML IV SCH (18:21)
--- NOTE | 2017-09-18 22:01 | RADRPT ---
EXAM DATE/TIME: 09/18/2017 21:27 [facility] COMPARISON: No previous studies available for comparison. INDICATIONS : Dizziness. Possible sinusitis. RADIATION DOSE: 25.47 CTDIvol (mGy) MEDICAL HISTORY : None SURGICAL HISTORY : Cholecystectomy. Hernia repair ENCOUNTER: Initial ACUITY: 1 day PAIN SCORE: 0/10 LOCATION: sinuses TECHNIQUE: Volumetric scanning of the paranasal sinuses was performed. Using automated exposure control and adj ustment of the mA and/or kV according to patient size, radiation dose was kept as low as reasonably a chievable to obtain optimal diagnostic quality images. DICOM format image data is available electro nically for review and comparison. FINDINGS: MAXILLARY SINUSES: Normal. No significant mucosal thickening or fluid. Infundibula are patent. No anomalous inferior orbital ethmoid (Kirill) air cells. ETHMOID SINUSES: Normal. No significant mucosal thickening or fluid. Fovea ethmoidal and lamina papyracea are symmet cassius and intact. SPHENOID SINUSES: Normal. No significant mucosal thickening or fluid. Sphenoethmoidal recesses are patent. No bony d ehiscence. FRONTAL SINUSES: Normal. No significant mucosal thickening or fluid. Frontal recesses are patent. No anomalous fron joana air cells. NASAL FOSSA: Normal. No septal perforation or deviation. No sergey bullosa or paradoxical turbinates are identifie d. OTHER: Normal. Limited views of the skull base and orbits are unremarkable. CONCLUSION: 1. No acute findings. Negative for sinusitis. Kvng Loaiza MD on September 18, 2017 at 21:57 Board Certified Radiologist. This report was verified electronically.
[2017-09-18] MEDS: PIPERACIL-TAZO 4.5 GM PREMIX 100 ML IV SCH (22:45)
[2017-09-18] MEDS: SODIUM CHLORIDE 0.9% FLUSH 10 ML FLUSH IV FLUSH SCH (22:45)
[2017-09-19] VITALS: BP 112/55; PULSE 68; RESP 20; TEMP 98.4; O2SAT 98
[2017-09-19] MEDS: SODIUM CHLOR 0.9% 1000 ML INJ 1,000 ML IV SCH ×3 (00:43→18:17)
[2017-09-19] MEDS: PIPERACIL-TAZO 4.5 GM PREMIX 100 ML IV SCH ×3 (05:09→21:00)
[2017-09-19 06:20] LABS: AUTOMATED NEUTROPHIL # 6.4 TH/MM3 (1.8-7.7); BASOPHIL % 0.4 % (0.0-2.0); EOSINOPHIL % 0.5 % (0.0-4.0); HEMATOCRIT 37.4 % (39.0-51.0); HEMOGLOBIN 12.8 GM/DL (13.0-17.0); LYMPH % 11.7 % (9.0-44.0); LYMPHOCYTE # 0.9 TH/MM3 (1.0-4.8); MEAN CELL VOLUME 89.7 FL (80.0-100.0); MEAN CORPUSCULAR HEMOGLOBIN 30.7 PG (27.0-34.0); MEAN CORPUSCULAR HGB CONC 34.2 % (32.0-36.0); MEAN PLATELET VOLUME 7.9 FL (7.0-11.0); MONO % 8.8 % (0.0-8.0); MONOCYTE # 0.7 TH/MM3 (0-0.9); NEUT % 78.6 % (16.0-70.0); PLATELET COUNT 101 TH/MM3 (150-450); RED BLOOD COUNT 4.17 MIL/MM3 (4.50-5.90)
[2017-09-19 06:42] LABS: BICARBONATE 24.4 MEQ/L (21.0-32.0); CALCIUM 7.9 MG/DL (8.5-10.1); CREATININE 0.88 MG/DL (0.60-1.30)
[2017-09-19] MEDS: SODIUM CHLORIDE 0.9% FLUSH 10 ML FLUSH IV FLUSH SCH ×2 (08:40→21:00)
[2017-09-19 09:01] VITALS: BP 125/57; PULSE 69; RESP 16; TEMP 98.7; O2SAT 98
[2017-09-19] MEDS ORDERED: DIATRIZOATE MEGLUM/DIATRIZOATE SOD 9 ML CUP PO ONE (09:45)
--- NOTE | 2017-09-19 11:19 | HHI.PR ---
Subjective Remarks Patient seen and evaluated today in follow-up for bacteremia gram-negative rods in 2 sets, temperature has resolved. Tachycardia and diaphoresis is improved also. Objective Vitals Vital Signs Date Time Temp Pulse Resp B/P (MAP) Pulse Ox O2 Delivery O2 Flow Rate FiO2 09/19/17 09:01 98.7 69 16 125/57 (79) 98 09/19/17 00:00 98.4 68 20 112/55 (74) 98 09/18/17 20:00 98.0 78 20 99/56 (70) 97 09/18/17 16:45 98.9 92 16 94/62 (73) 97 09/18/17 16:00 98.2 81 14 94/90 (91) 96 09/18/17 14:54 100.7 112 18 98 Nasal Cannula 2.00 09/18/17 13:59 102.7 114 18 148/82 (104) 96 Nasal Cannula 2.00 09/18/17 13:59 102.7 114 18 148/82 (104) 96 2.00 09/18/17 12:56 103.1 108 18 135/55 (81) 96 Nasal Cannula 2.00 09/18/17 12:20 95 Nasal Cannula 2.00 09/18/17 12:20 95 Nasal Cannula 2.00 09/18/17 12:05 112 93 Room Air 09/18/17 12:05 102.8 120 22 110/65 (80) 93 Room Air 09/18/17 11:51 102.8 125 20 133/61 (85) 91 I/O 09/18/17 09/18/17 09/18/17 09/19/17 09/19/17 09/19/17 07:00 15:00 23:00 07:00 15:00 23:00 Intake Total 2100 ml 222 ml 2440 ml Output Total 100 ml Balance 2000 ml 222 ml 2440 ml Intake Oral 222 ml 240 ml IV Total 2100 ml 2200 ml Output Urine Total 100 ml # Voids 1 2 1 # Bowel Movements 2 Result Diagram: 09/19/17 0607 09/19/17 0607 Imaging Last Impressions Chest X-Ray 09/18/17 1209 Signed Impressions: Service Date/Time: Monday, September 18, 2017 12:20 - CONCLUSION: No acute cardiopulmonary abnormality is identified. Champ Frye MD Sinuses CT 09/18/17 0000 Signed Impressions: Service Date/Time: Monday, September 18, 2017 21:27 - CONCLUSION: 1. No acute findings. Negative for sinusitis. Kvng Loaiza MD Objective Remarks GENERAL: This is a well-nourished, well-developed patient, in no apparent distress. CARDIOVASCULAR: Regular rate and rhythm without murmurs, gallops, or rubs. RESPIRATORY: Clear to auscultation. Breath sounds equal bilaterally. No wheezes , rales, or rhonchi. GASTROINTESTINAL: Abdomen soft, non-tender, nondistended. Normal active bowel sounds MUSCULOSKELETAL: Extremities without clubbing, cyanosis, or edema. NEURO: Alert & Oriented x4 to person, place, time, situation. Moves all ext x4 A/P Problem List: (1) Febrile illness ICD Code: R50.9 - Fever, unspecified Status: Acute Plan: Empiric IV Zosyn Source unknown,unremarkable CT of sinuses Previous Escherichia coli bacteremia with unknown source Now with 2/2 blood cultures GNR, ID team consults CT abd/pelvis pending Priya Harrison MD Sep 19, 2017 11:19
--- NOTE | 2017-09-19 12:47 | RADRPT ---
EXAM DATE/TIME: 09/19/2017 12:12 [facility] COMPARISON: CT ABDOMEN & PELVIS W CONTRAST, February 08, 2017, 14:05. INDICATIONS : Sepsis. Possible enteritis. ORAL CONTRAST: Prescribed oral contrast ingested. RADIATION DOSE: 24.77 CTDIvol (mGy) MEDICAL HISTORY : Hernia, inguinal. SURGICAL HISTORY : Cholecystectomy. ENCOUNTER: Initial ACUITY: 2 days PAIN SCALE: 0/10 LOCATION: abdomen TECHNIQUE: Volumetric scanning of the abdomen and pelvis was performed. Using automated exposure control and ad justment of the mA and/or kV according to patient size, radiation dose was kept as low as reasonably achievable to obtain optimal diagnostic quality images. DICOM format image data is available electro nically for review and comparison. FINDINGS: LOWER LUNGS: The visualized lower lungs are clear. LIVER: Redemonstration of multiple scattered bilobar hepatic cysts. No intrahepatic ductal dilatation. Gallb ladder is surgically absent. SPLEEN: Normal size without lesion. PANCREAS: Within normal limits. KIDNEYS: Normal in size and shape. There is no mass, stone, or hydronephrosis. ADRENAL GLANDS: Within normal limits. VASCULAR: There is no aortic aneurysm. BOWEL/MESENTERY: The stomach, small bowel, and colon demonstrate no acute abnormality. Stable 2.7 cm peripherally carl cified lesion adjacent to the sigmoid colon which appears unchanged from prior examination. The bowel otherwise appears unremarkable without evidence for significant bowel thickening or obstruction. No drainable fluid collections. There is no free intraperitoneal air or fluid. ABDOMINAL WALL: Small fat-containing anterior abdominal wall periumbilical hernia. RETROPERITONEUM: There is no lymphadenopathy. BLADDER: No wall thickening or mass. REPRODUCTIVE: Within normal limits. INGUINAL: Small fat-containing right inguinal hernia. MUSCULOSKELETAL: Within normal limits for patient age. CONCLUSION: 1. No acute abnormality or significant interval change from prior examination. Specifically, no signi ficant inflammatory change or bowel wall thickening to suggest enteritis as questioned. 2. Stable 2.7 cm benign appearing peripherally calcified structure adjacent to the sigmoid. Again, di fferential considerations include old seroma/hematoma or calcified lymph node amongst other etiologie s. 3. Small fat-containing periumbilical and right inguinal hernias. Kelvin Duarte MD on September 19, 2017 at 12:38 Board Certified Radiologist. This report was verified electronically.
--- NOTE | 2017-09-19 17:44 | ECHRPT ---
Indication: Acute and subacute infective endocarditis CONCLUSIONS The left ventricular systolic function is normal with an estimated ejection fraction in the range of 55-60%. Wall thickness is measured at the upper limits of normal. Normal left ventricular size. The left atrial size is mildly dilated. There is mild tricuspid valve regurgitation. The estimated pulmonary arterial pressure is 36.4 mmHg. BP: / HR: Rhythm: Sinus MEASUREMENTS (Male / Female) Normal Values Technical Quality:Fair 2D ECHO LV Diastolic Diameter PLAX 5.0 cm 4.2 - 5.9 / 3.9 - 5.3 cm LV Systolic Diameter PLAX 3.7 cm IVS Diastolic Thickness 1.2 cm 0.6 - 1.0 / 0.6 - 0.9 cm LVPW Diastolic Thickness 1.2 cm 0.6 - 1.0 / 0.6 - 0.9 cm LV Relative Wall Thickness 0.5 LVOT Diameter 2.4 cm M-MODE Aortic Root Diameter MM 3.7 cm LA Systolic Diameter MM 4.2 cm LA Ao Ratio MM 1.1 AV Cusp Separation MM 2.3 cm DOPPLER AV Peak Velocity 132.0 cm/s AV Peak Gradient 7.0 mmHg LVOT Peak Velocity 113.0 cm/s LVOT Peak Gradient 5.1 mmHg AV Area Cont Eq pk 3.9 cm MR Peak Velocity 204.0 cm/s MR Peak Gradient 16.6 mmHg Mitral E Point Velocity 83.9 cm/s Mitral A Point Velocity 49.4 cm/s Mitral E to A Ratio 1.7 LV E' Lateral Velocity 13.9 cm/s Mitral E to LV E' Lateral Ratio 6.0 LV E' Septal Velocity 9.3 cm/s Mitral E to LV E' Septal Ratio 9.1 TR Peak Velocity 257.0 cm/s TR Peak Gradient 26.4 mmHg Right Atrial Pressure 10.0 mmHg Pulmonary Artery Systolic Pressu 36.4 mmHg Right Ventricular Systolic Press 36.4 mmHg PV Peak Velocity 117.0 cm/s PV Peak Gradient 5.5 mmHg FINDINGS LEFT VENTRICLE The left ventricular systolic function is normal with an estimated ejection fraction in the range of 55-60%. Wall thickness is measured at the upper limits of normal. Normal left ventricular size. RIGHT VENTRICLE Normal right ventricular size and systolic function. LEFT ATRIUM The left atrial size is mildly dilated. RIGHT ATRIUM The right atrial size is normal. ATRIAL SEPTUM Normal atrial septal thickness without atrial level shunting by limited color doppler interrogation. AORTA The aortic root and proximal ascending aorta are normal in size on limited imaging. MITRAL VALVE Structurally normal mitral valve. No mitral valve stenosis or regurgitation. AORTIC VALVE Trileaflet aortic valve. No aortic valve stenosis or regurgitation. TRICUSPID VALVE There is mild tricuspid valve regurgitation. The estimated pulmonary arterial pressure is 36.4 mmHg. PULMONARY VALVE No pulmonary valve regurgitation or stenosis. VESSELS The inferior vena cava is normal in size. PERICARDIUM No pericardial effusion. Hermes Everett MD, FACC, [facility] [place] (Electronically Signed) Final Date:19 September 2017 17:43
[2017-09-19 18:29] VITALS: RESP 18
[2017-09-19 18:55] VITALS: BP 109/57; PULSE 81; RESP 14; TEMP 100.2; O2SAT 92
[2017-09-19 20:00] VITALS: BP 130/53; PULSE 87; RESP 18; TEMP 100.2; O2SAT 97
[2017-09-20 00:42] VITALS: BP 114/69; PULSE 73; RESP 16; TEMP 99; O2SAT 96
[2017-09-20] MEDS: PIPERACIL-TAZO 4.5 GM PREMIX 100 ML IV SCH ×3 (06:03→20:08)
[2017-09-20] MEDS: SODIUM CHLOR 0.9% 1000 ML INJ 1,000 ML IV SCH ×2 (06:03→16:43)
[2017-09-20 08:00] VITALS: BP 117/70; PULSE 67; RESP 16; TEMP 97.6; O2SAT 95
[2017-09-20] MEDS: SODIUM CHLORIDE 0.9% FLUSH 10 ML FLUSH IV FLUSH SCH ×2 (08:15→20:08)
--- NOTE | 2017-09-20 09:11 | HHI.PR ---
Subjective Remarks Patient seen today in follow-up for bacteremia. Outpatient endoscopy performed at [facility] in the last 3 months. Bacterial cultures are positive for Klebsiella. CT abdomen pelvis unremarkable. Patient continues to improve clinically Objective Vitals Vital Signs Date Time Temp Pulse Resp B/P (MAP) Pulse Ox O2 Delivery O2 Flow Rate FiO2 09/20/17 00:42 99.0 73 16 114/69 (84) 96 09/19/17 20:00 100.2 87 18 130/53 (78) 97 09/19/17 18:55 100.2 81 14 109/57 (74) 92 09/19/17 18:29 18 I/O 09/19/17 09/19/17 09/19/17 09/20/17 09/20/17 09/20/17 07:00 15:00 23:00 07:00 15:00 23:00 Intake Total 2440 ml 100 ml 2000 ml 600 ml Balance 2440 ml 100 ml 2000 ml 600 ml Intake Oral 240 ml 1000 ml 600 ml IV Total 2200 ml 100 ml 1000 ml # Voids 1 6 2 # Bowel Movements 1 0 Result Diagram: 09/19/17 0607 09/19/17 0607 Objective Remarks GENERAL: This is a well-nourished, well-developed patient, in no apparent distress. CARDIOVASCULAR: Regular rate and rhythm without murmurs, gallops, or rubs. RESPIRATORY: Clear to auscultation. Breath sounds equal bilaterally. No wheezes , rales, or rhonchi. GASTROINTESTINAL: Abdomen soft, non-tender, nondistended. Normal active bowel sounds MUSCULOSKELETAL: Extremities without clubbing, cyanosis, or edema. NEURO: Alert & Oriented x4 to person, place, time, situation. Moves all ext x4 A/P Problem List: (1) Febrile illness ICD Code: R50.9 - Fever, unspecified Status: Acute Plan: Empiric IV Zosyn for bacteremia Source unknown but likely GI (outpatient endoscopy performed at [facility] unremarkable per patient, we'll attempt to obtain endoscopy report) Klebsiella oxytoca on current blood cultures GNR, ID team consult pending CT abd/pelvis and sinuses unremarkable, echo within normal limits Repeat blood cultures pending Priya Harrison MD Sep 20, 2017 09:11
[2017-09-20 12:00] VITALS: BP 130/66; PULSE 83; RESP 14; TEMP 97.7; O2SAT 97
[2017-09-20 16:00] VITALS: BP 121/61; PULSE 71; RESP 14; TEMP 98.6; O2SAT 96
[2017-09-20 20:00] VITALS: BP 111/63; PULSE 72; RESP 18; TEMP 98.8; O2SAT 97
--- NOTE | 2017-09-20 22:53 | PD.ID.CON ---
History of Present Illness Service ID Consult Requested By Dr Harrison Reason for Consult Bacteremia Primary Care Physician Seth Henley DO Diagnoses: History of Present Illness 57 yo male known to me from his previous admission in January with unexplained E.coli bacteremia resulted in negative w/u (CT, colonoscopy and UA) presented with anothert episode od fever, chills He is deniying having any pother symptoms, including no abdominal or back pain, any urinary problems, any difficulty urinating This time he has pyuria on UA He gerw out Klebsiella this time He awas started on abx and his fever resolved Review of Systems Except as stated in HPI: all other systems reviewed are Neg Past Family Social History Allergies: Coded Allergies: No Known Allergies (Unverified Allergy, Unknown, 09/18/17) Active Ordered Medications Medications where reviewed in EMR Antibiotics Include: zosyn Physical Exam Vital Signs Vital Signs Date Time Temp Pulse Resp B/P (MAP) Pulse Ox O2 Delivery O2 Flow Rate FiO2 09/20/17 20:00 98.8 72 18 111/63 (79) 97 09/20/17 16:00 98.6 71 14 121/61 (81) 96 09/20/17 12:00 97.7 83 14 130/66 (87) 97 09/20/17 08:00 97.6 67 16 117/70 (86) 95 09/20/17 00:42 99.0 73 16 114/69 (84) 96 Physical Exam CONSTITUTIONAL/GENERAL: This is an obese middle aged patient, in no apparent distress. TUBES/LINES/DRAINS: SKIN: No jaundice, rashes, or lesions. Skin temperature appropriate. Not diaphoretic. HEAD: Atraumatic. Normocephalic. EYES: Pupils equal and round and reactive. Extraocular motions intact. No scleral icterus. No injection or drainage. Fundi not examined. ENT: Hearing grossly normal. Nose without bleeding or purulent drainage. Throat without visible erythema, exudates, masses, or lesions. NECK: Trachea midline. Supple, nontender. No palpable thyroid enlargement or nodularity. CARDIOVASCULAR: Regular rate and rhythm without murmurs, gallops, or rubs. No JVD. Peripheral pulses symmetric. RESPIRATORY/CHEST: Symmetric, unlabored respirations. Clear to auscultation. Breath sounds equal bilaterally. No wheezes, rales, or rhonchi. GASTROINTESTINAL: Abdomen soft, non-tender, nondistended. No hepato-splenomegaly , or palpable masses. No guarding. Bowel sounds present. GENITOURINARY: Without palpable bladder distension. MUSCULOSKELETAL: Extremities without clubbing, cyanosis, or edema. No joint tenderness or effusion noted. No calf tenderness. No mottling or clubbing. LYMPHATICS: No palpable cervical or supraclavicular adenopathy. NEUROLOGICAL: Awake and alert. Motor and sensory grossly within normal limits. Follows commands. Cognitively sharp. Moves all extremities. PSYCHIATRIC: No obvious anxiety/depression. no apparent hallucinations or other psychotic thought process. Laboratory Date/Time Source Procedure Growth Status 09/20/17 10:10 Blood Peripheral Aerobic Blood Culture Pending Received 09/20/17 10:10 Blood Peripheral Anaerobic Blood Culture Pending Received 09/18/17 12:15 Nasal Aspirate Influenza Types A,B Antigen (ELSI) - Final NEGATIVE FOR FLU A AND B ANTIGEN.... Complete 09/18/17 14:15 Urine Clean Catch Urine Culture - Final NO GROWTH IN 48 HOURS. Complete Result Diagram: 09/19/17 0607 09/19/17 0607 Imaging Last Impressions Abdomen/Pelvis CT 09/19/17 0000 Signed Impressions: Service Date/Time: Tuesday, September 19, 2017 12:12 - CONCLUSION: 1. No acute abnormality or significant interval change from prior examination. Specifically , no significant inflammatory change or bowel wall thickening to suggest enteritis as questioned. 2. Stable 2.7 cm benign appearing peripherally calcified structure adjacent to the sigmoid. Again, differential considerations include old seroma/hematoma or calcified lymph node amongst other etiologies. 3. Small fat-containing periumbilical and right inguinal hernias. Kelvin Duarte MD Chest X-Ray 09/18/17 1209 Signed Impressions: Service Date/Time: Monday, September 18, 2017 12:20 - CONCLUSION: No acute cardiopulmonary abnormality is identified. Champ Frye MD Sinuses CT 09/18/17 0000 Signed Impressions: Service Date/Time: Monday, September 18, 2017 21:27 - CONCLUSION: 1. No acute findings. Negative for sinusitis. Kvng Loaiza MD Assessment and Plan Assessment and Plan Recurrent bacteremia, this time probably UTI cont abx change to Rocepjhine will change to levaquine po once [place] for Emily Ramsay MD Sep 20, 2017 22:53
[2017-09-20] MEDS ORDERED: cefTRIAXone INJ 2,000 MG in SODIUM CHLORIDE 0.9% INJ 100 ML IV SCH (23:00)
[2017-09-21] VITALS: BP 101/71; PULSE 64; RESP 18; TEMP 97.9; O2SAT 95
[2017-09-21] MEDS: SODIUM CHLOR 0.9% 1000 ML INJ 1,000 ML IV SCH ×3 (03:10→22:43)
[2017-09-21 07:27] LABS: BASOPHIL % 0.6 % (0.0-2.0); EOSINOPHIL # 0.2 TH/MM3 (0-0.4); EOSINOPHIL % 2.8 % (0.0-4.0); HEMATOCRIT 35.3 % (39.0-51.0); HEMOGLOBIN 11.7 GM/DL (13.0-17.0); LYMPH % 24.5 % (9.0-44.0); LYMPHOCYTE # 1.5 TH/MM3 (1.0-4.8); MEAN CELL VOLUME 90.5 FL (80.0-100.0); MEAN CORPUSCULAR HEMOGLOBIN 30.1 PG (27.0-34.0); MEAN CORPUSCULAR HGB CONC 33.2 % (32.0-36.0); MEAN PLATELET VOLUME 9.2 FL (7.0-11.0); MONO % 8.4 % (0.0-8.0); MONOCYTE # 0.5 TH/MM3 (0-0.9); NEUT % 63.7 % (16.0-70.0); PLATELET COUNT 119 TH/MM3 (150-450); RED BLOOD COUNT 3.89 MIL/MM3 (4.50-5.90); RED CELL DISTRIBUTION WIDTH 12.1 % (11.6-17.2); WHITE BLOOD COUNT 6.2 TH/MM3 (4.0-11.0)
[2017-09-21 07:45] VITALS: BP 112/64; PULSE 61; RESP 20; TEMP 97.3; O2SAT 95
[2017-09-21] MEDS: SODIUM CHLORIDE 0.9% FLUSH 10 ML FLUSH IV FLUSH SCH ×2 (09:28→20:57)
--- NOTE | 2017-09-21 11:24 | HHI.PR ---
Subjective Remarks patient seen and evaluated today in follow-up for bacteremia. Appears to be Klebsiella sensitive to Rocephin. Patient's clinical symptoms are greatly improved Objective Vitals Vital Signs Date Time Temp Pulse Resp B/P (MAP) Pulse Ox O2 Delivery O2 Flow Rate FiO2 09/21/17 07:45 97.3 61 20 112/64 (80) 95 09/21/17 00:00 97.9 64 18 101/71 (81) 95 09/20/17 20:00 98.8 72 18 111/63 (79) 97 09/20/17 16:00 98.6 71 14 121/61 (81) 96 09/20/17 12:00 97.7 83 14 130/66 (87) 97 I/O 09/20/17 09/20/17 09/20/17 09/21/17 09/21/17 09/21/17 07:00 15:00 23:00 07:00 15:00 23:00 Intake Total 600 ml 340 ml 1780 ml Balance 600 ml 340 ml 1780 ml Intake Oral 600 ml 240 ml 580 ml IV Total 100 ml 1200 ml # Voids 2 3 # Bowel Movements 0 1 Result Diagram: 09/21/17 0517 09/19/17 0607 Objective Remarks GENERAL: This is a well-nourished, well-developed patient, in no apparent distress. CARDIOVASCULAR: Regular rate and rhythm without murmurs, gallops, or rubs. RESPIRATORY: Clear to auscultation. Breath sounds equal bilaterally. No wheezes , rales, or rhonchi. GASTROINTESTINAL: Abdomen soft, non-tender, nondistended. Normal active bowel sounds MUSCULOSKELETAL: Extremities without clubbing, cyanosis, or edema. NEURO: Alert & Oriented x4 to person, place, time, situation. Moves all ext x4 A/P Problem List: (1) Febrile illness ICD Code: R50.9 - Fever, unspecified Status: Acute Plan: Continue with Rocephin for bacteremia Klebsiella oxytoca on current blood cultures ID team consult appreciated CT abd/pelvis and sinuses unremarkable, echo within normal limits Repeat blood cultures pending Discharge Planning Discharge in a.m. on oral antibiotics if cultures remain negative Priya Harrison MD Sep 21, 2017 11:24
[2017-09-21 12:00] VITALS: BP 130/62; PULSE 70; RESP 20; TEMP 96.7; O2SAT 95
[2017-09-21 16:00] VITALS: BP 116/65; PULSE 59; RESP 20; TEMP 97.9; O2SAT 96
[2017-09-21 20:00] VITALS: BP 119/66; PULSE 72; RESP 18; TEMP 98.3; O2SAT 96
[2017-09-22 00:41] VITALS: BP 122/70; PULSE 70; RESP 18; TEMP 97.8; O2SAT 96
[2017-09-22] MEDS ORDERED: cefTRIAXone INJ 2,000 MG in SODIUM CHLORIDE 0.9% INJ 100 ML IV SCH ×2 (03:00→11:00)
[2017-09-22 08:00] VITALS: BP 132/72; PULSE 67; RESP 20; TEMP 97.6; O2SAT 97
[2017-09-22] MEDS: SODIUM CHLOR 0.9% 1000 ML INJ 1,000 ML IV SCH (08:43)
[2017-09-22] MEDS: SODIUM CHLORIDE 0.9% FLUSH 10 ML FLUSH IV FLUSH SCH (10:04)
[2017-09-22] MEDS ORDERED: LEVO750T3 PO (11:45)
--- NOTE | 2017-09-22 11:46 | HHI.DCPOC ---
Discharge Care Plan Diagnosis: (1) Bacteremia (2) Sepsis Goals to Promote Your Health * To prevent worsening of your condition and complications * To maintain your health at the optimal level Directions to Meet Your Goals Take your medications as prescribed Follow your dietary instruction Follow activity as directed Keep your appointments as scheduled Take your immunizations and boosters as scheduled If your symptoms worsen call your PCP, if no PCP go to Urgent Care Center or Emergency Room Smoking is Dangerous to Your Health. Avoid second hand smoke Call the 24-hour hour crisis hotline for domestic abuse at Priya Harrison MD Sep 22, 2017 11:46
--- NOTE | 2017-09-22 11:48 | HHI.DS ---
Discharge Summary Admission Date Sep 18, 2017 at 14:50 Discharge Date: Sep 22, 2017 Admitting Diagnosis Sepsis; Unknown Etiology (1) Febrile illness ICD Code: R50.9 - Fever, unspecified Status: Acute Procedures Echocardiogram Brief History - From Admission This patient is a 57-year-old gentleman comes to the hospital with high-grade fevers and chills without a source. Previously he had a similar episode and ended up with Escherichia coli bacteremia. He denies any chest pain or shortness of breath but does have some frontal sinus pressure has been new over the last several days. He had a workup the last admission and this included endoscopy upper and lower which were cleaned per the patient. This time he has occasional loose stools which are unchanged over the last year. He has otherwise no symptoms no rashes, no urinary troubles. Patient's temperature has been as high as 103. His heart rate is in the 120s and he has been recommended for admission for these worrisome findings. CBC/BMP: 09/21/17 0517 09/19/17 0607 Significant Findings Laboratory Tests Test 09/21/17 05:17 Red Blood Count 3.89 MIL/MM3 (4.50-5.90) Hemoglobin 11.7 GM/DL (13.0-17.0) Hematocrit 35.3 % (39.0-51.0) Platelet Count 119 TH/MM3 (150-450) Monocytes (%) (Auto) 8.4 % (0.0-8.0) Imaging Last Impressions Abdomen/Pelvis CT 09/19/17 0000 Signed Impressions: Service Date/Time: Tuesday, September 19, 2017 12:12 - CONCLUSION: 1. No acute abnormality or significant interval change from prior examination. Specifically , no significant inflammatory change or bowel wall thickening to suggest enteritis as questioned. 2. Stable 2.7 cm benign appearing peripherally calcified structure adjacent to the sigmoid. Again, differential considerations include old seroma/hematoma or calcified lymph node amongst other etiologies. 3. Small fat-containing periumbilical and right inguinal hernias. Kelvin Duarte MD Chest X-Ray 09/18/17 1209 Signed Impressions: Service Date/Time: Monday, September 18, 2017 12:20 - CONCLUSION: No acute cardiopulmonary abnormality is identified. Champ Frye MD Sinuses CT 09/18/17 0000 Signed Impressions: Service Date/Time: Monday, September 18, 2017 21:27 - CONCLUSION: 1. No acute findings. Negative for sinusitis. Kvng Loaiza MD PE at Discharge GENERAL: This is a well-nourished, well-developed patient, in no apparent distress. CARDIOVASCULAR: Regular rate and rhythm without murmurs, gallops, or rubs. RESPIRATORY: Clear to auscultation. Breath sounds equal bilaterally. No wheezes , rales, or rhonchi. GASTROINTESTINAL: Abdomen soft, non-tender, nondistended. Normal active bowel sounds MUSCULOSKELETAL: Extremities without clubbing, cyanosis, or edema. NEURO: Alert & Oriented x4 to person, place, time, situation. Moves all ext x4 Pt update on day of discharge Patient will well today. No fever. Blood cultures have remained negative over the last 48 hours. Patient tolerating current antibiotics well Hospital Course This patient is a 57-year-old gentleman who came in with a transient bacteremia from unknown source. Antibiotics to cover this current Klebsiella and the patient improved dramatically from his initial sepsis present on admission. He was discharged on oral antibiotics to follow-up with his primary care physician Pt Condition on Discharge: Good Discharge Disposition: Discharge Home Discharge Time: <= 30 minutes Discharge Instructions DIET: Follow Instructions for: As Tolerated, No Restrictions Activities you can perform: Regular-No Restrictions Follow up Referrals: PCP Follow-up - 1 Week New Medications: Levofloxacin (Levofloxacin) 750 Mg Tablet 750 MG PO DAILY for Infection, #10 TAB 0 Refills Priya Harrison MD Sep 22, 2017 11:48
[2017-09-22 11:54] VITALS: BP 120/65; PULSE 70; RESP 20; TEMP 98.1; O2SAT 98
== END 2017-09-22 13:53 | disposition home or self-care (01) | DRG 872 ==
LOC: PHED 11:44 → PHEDA 14:50 → PH3A 16:42
PROVIDERS: ADMIT Hospitalist; ATTEND Hospitalist
DX: R78.81 Bacteremia (principal); B96.1 Klebsiella pneumoniae [K. pneumoniae] as the cause of diseases classified elsewhere; R50.9 Fever, unspecified; R61 Generalized hyperhidrosis; R00.0 Tachycardia, unspecified
CPT/HCPCS: 70486; 71045; 74176; 76937; 80048; 80053; 81001; 82550; 83605; 83690; 83735; 85025; 87040; 87086; 87205; 87804; 93306; 96361; 96365; J0696; J2543; J7030; Q9963